=== PATIENT | female | born 1975 | race Caucasian/White ===

== ENCOUNTER 2017-08-22 21:00 | Emergency (ER) | payer OTHER, SELFPAY ==
[2017-08-22 21:38] VITALS: BP 150/85; PULSE 118; RESP 17; TEMP 38.4; O2SAT 98; BMI 32.3
--- NOTE | 2017-08-22 22:28 | HMH.EDGENADL ---
ED Disposition Clinical Impression: Viral illness Disposition: Home, Self-Care Condition on Discharge: Good Instructions: DI for Influenza -- Adult, DI for Fever (Symptom) -- Adult Additional Instructions: Tylenol or ibuprofen for fever and pain. Rest and plenty of fluids. Additional instructions for UPPER RESPIRATORY INFECTION: See your physician as soon as possible for further evaluation. Return immediately if you have an uncontrollable fever greater than 104 degrees, difficulty breathing or shortness of breath, persistent vomiting, or inability to swallow. Prescriptions: Oseltamivir Phosphate [Tamiflu 75mg Capsule] 75 mg PO BID #10 cap Forms: Work/School Release - Critical Care Critical Care Time: No Attestation: On 08/22/17, the high probability of a clinically significant, sudden or life threatening deterioration of the following system(s) required my full and direct attention, intervention and personal management. The time I documented below is in addition to time spent performing reported procedures but includes the following listed in this critical care notation. Medical Decision Making Vital Signs: 08/22/17 21:38 Temperature 101.1 F H Temperature Source Oral Pulse Rate [Left Radial] 118 H Respiratory Rate 17 Blood Pressure [Right Arm] 150/85 Blood Pressure Mean [Right Arm] 106 Blood Pressure Source [Right Arm] Automatic Cuff Blood Pressure Position [Right Arm] Sitting 02 Sat by Pulse Oximetry 98 Oxygen Delivery Method Room Air - Lab Data Lab Results 08/22/17 21:58: Influenza Type A Ag Negative, Influenza Type B Ag Negative 08/22/17 22:49: WBC 10.4, RBC 4.80, Hgb 13.9, Hct 43.0, MCV 89.5, MCH 28.9, MCHC 32.3, RDW 13.3, Plt Count 244, MPV 7.7, Neut % (Auto) 76.8, Lymph % (Auto) 14.9, [place] % (Auto) 7.1, Eos % (Auto) 0.5, Baso % (Auto) 0.7, Neut # (Auto) 8.0 H, Lymph # (Auto) 1.6, [place] # (Auto) 0.7, Eos # (Auto) 0.1, Baso # (Auto) 0.1 08/22/17 22:49: Sodium 134 L, Potassium 3.9, Chloride 101, Carbon Dioxide 25, Anion Gap 11.9, BUN 8, Creatinine 0.69, Estimated Creat Clear 151, Estimated GFR > 60, Est GFR ( Amer) > 60, Glucose 94, Calcium 8.7, Total Bilirubin 0.3, AST 53 H, ALT 127 H, Alkaline Phosphatase 78, Total Protein 7.5, Albumin 3.4, Globulin 4.1 H, Albumin/Globulin Ratio 0.8 L 08/22/17 22:49: Group A Strep Rapid Negative Result diagrams: 08/22/17 22:49 08/22/17 22:49 Orders (Tests/Meds): ED MEDICATIONS Generic Name Dose Route Start Last Admin Trade Name Freq PRN Reason Stop Dose Admin Sodium Chloride 10 ml 08/22/17 22:34 Saline Flush 10ml Syringe IV 09/21/17 22:33 NEEDED PRN Maintain IV Site Discontinued Medications Generic Name Dose Route Start Last Admin Trade Name Freq PRN Reason Stop Dose Admin Ibuprofen 600 mg 08/22/17 22:03 08/22/17 22:13 Motrin 600mg Tablet PO 08/22/17 22:04 600 mg ONCE ONE Administration Ondansetron HCl 4 mg 08/22/17 22:34 08/22/17 22:43 Zofran 4mg/2ml Vial IV 08/22/17 22:35 4 mg ONCE ONE Administration Promethazine HCl 25 kush 08/22/17 23:47 Phenergan 25mg Tablet Take Home Pack (10) PO 08/22/17 23:48 ONCE ONE Sodium Chloride 1,000 ml 08/22/17 22:34 08/22/17 22:43 Sod Chloride 0.9% 1000ml Bag IV 08/22/17 22:35 1,000 ml BOLUS ONE Administration ORDERS Category Date Time Status XR chest 2V Stat Exams 08/22/17 22:34 Taken Strep Screen Confirmation Stat Micro 08/22/17 22:49 Received - Radiology Data #1 Image(s): Chest Image Reviewed: Yes I reviewed the patient's radiology results Chest x-ray interpreted by Cory Lucero M.D. No infiltrate, pneumothorax, pleural effusion, or wide mediastinum. Atelectasis of lingula. - Jos Inquiry Pt receiving controlled substance: No Medical Decision Making Narrative: Clinically, I feel it is likely that the patient has influenza despite the negative flu swab. General Adult HPI - General Chief c
--- NOTE | 2017-08-22 22:34 | XR_ITS ---
XR chest 2V HISTORY: ITS.REASON: cough, fever ORDERING PHYSICIAN: Cory Lucero MD PATIENT AGE: 42 years COMPARISON: 10/31/2013 FINDINGS: The cardiomediastinal silhouette and pulmonary vascularity are within normal limits. The lungs are clear without infiltrates, suspicious nodules, or pleural effusions. No acute bony abnormalities. IMPRESSION: Negative chest, no acute finding
[2017-08-22 23:21] LABS: Basophils # 0.1 K/mm3 (0-0.2); Basophils % 0.7 % (0.1-2.0); Eosinophils # 0.1 K/mm3 (0.0-0.4); Eosinophils % 0.5 % (0.1-12.0); Hemoglobin 13.9 g/dL (12.2-16.2); Lymphocytes # 1.6 K/mm3 (0.7-4.5); Lymphocytes % 14.9 K/mm3 (10-50); Mean Corpuscular HGB Conc 32.3 g/dL (31.8-35.4); Mean Corpuscular Hemoglobin 28.9 pg (27.0-31.2); Mean Corpuscular Volume 89.5 fl (81-99); Mean Platelet Volume 7.7 fl (7.4-10.4); Monocytes # 0.7 K/mm3 (0.1-1.0); Monocytes % 7.1 % (1.7-9.3); Neutrophils % 76.8 % (37.0-80.0); Platelet Count 244 K/mm3 (142-424); Red Cell Distribution Width 13.3 % (11.5-17.5); White Blood Count 10.4 K/mm3 (4.8-10.8)
[2017-08-22 23:29] LABS: Alanine Aminotransferase 127 U/L (12-78); Albumin Level 3.4 gm/dL (3.4-5.0); Albumin/Globulin Ratio 0.8 (1.1-1.8); Alkaline Phosphatase 78 U/L (46-116); Anion Gap 11.9 mEq/L (5-15); Aspartate Amino Transferase 53 U/L (15-37); Bilirubin,Total 0.3 mg/dL (0.2-1.0); Blood Urea Nitrogen 8 mg/dL (7-18); Calcium 8.7 mg/dL (8.5-10.1); Carbon Dioxide 25 mmol/L (21.0-32.0); Chloride 101 mmol/L (98-107); Creatinine Clearance Estimated 151 mL/min (0-300); Creatinine,Serum 0.69 mg/dL (0.55-1.02); Estimated Glomerular Filt Rate > 60 ml/min (>60); GFR (African American) > 60 ML/MIN (>60); Globulin 4.1 gm/dl (1.3-3.2); Glucose 94 mg/dL (74-106); Potassium 3.9 mmoL/L (3.5-5.1); Sodium 134 mmol/L (136-145); Total Protein,Serum 7.5 gm/dL (6.4-8.2)
[2017-08-22 23:31] LABS: Strep Scrn Group A (Rapid) Negative (Negative)
[2017-08-23 00:26] VITALS: BP 133/65; PULSE 98; RESP 16; TEMP 37.2; O2SAT 96
== END 2017-08-23 00:26 | disposition home or self-care (01) ==
PROVIDERS: Emergency Provider Emergency Medicine; Family Provider Emergency Medicine
DX: B34.9 Viral infection, unspecified (principal); F17.210 Nicotine dependence, cigarettes, uncomplicated; Z88.0 Allergy status to penicillin
CPT/HCPCS: 71046; 80053; 85025; 87275; 87276; 87430; 96360; 96365; 96375; 99283; J2405

== ENCOUNTER 2017-12-03 13:00 | Outpatient (RCR) | payer OTHER, SELFPAY | END 2017-12-03 13:01 | disposition home or self-care (01) | LOC: PT 13:00 | PROVIDERS: Family Provider Emergency Medicine | DX: T24.231A Burn of second degree of right lower leg, initial encounter (principal) | CPT/HCPCS: 97162 ==

== ENCOUNTER → 2018-02-12 06:52 | Outpatient (CLI) | payer OTHER, SELFPAY ==
--- NOTE | 2018-02-12 06:54 | XR_ITS ---
XR chest 2V HISTORY: Tobacco user, smoker, ITS.REASON: tobacco user ORDERING PHYSICIAN: JESUS Singh PATIENT AGE: 42 years COMPARISON: 08/22/2017 FINDINGS: The cardiomediastinal silhouette and pulmonary vascularity are within normal limits. The lungs are clear without infiltrates, suspicious nodules, or pleural effusions. No acute bony abnormalities. IMPRESSION: Negative chest, no acute finding
[2018-02-12 08:02] LABS: Basophils # 0.1 K/mm3 (0-0.2); Basophils % 0.5 % (0.1-2.0); Eosinophils # 0.3 K/mm3 (0.0-0.4); Hematocrit 49.3 % (37.0-47.0); Hemoglobin 15.5 g/dL (12.2-16.2); Lymphocytes # 3.3 K/mm3 (0.7-4.5); Lymphocytes % 19.8 K/mm3 (10-50); Mean Corpuscular HGB Conc 31.5 g/dL (31.8-35.4); Mean Corpuscular Hemoglobin 26.6 pg (27.0-31.2); Mean Corpuscular Volume 84.4 fl (81-99); Mean Platelet Volume 7.3 fl (7.4-10.4); Monocytes % 5.8 % (1.7-9.3); Neutrophils # 11.9 K/mm3 (1.8-7.8); Neutrophils % 71.9 % (37.0-80.0); Platelet Count 358 K/mm3 (142-424); Red Blood Count 5.84 M/mm3 (4.20-5.40); Red Cell Distribution Width 15.3 % (11.5-17.5); White Blood Count 16.5 K/mm3 (4.8-10.8)
[2018-02-12 08:13] LABS: MANUAL DIFFERENTIAL MANUAL DIFFERENTIAL (MANUAL DIFF)
[2018-02-12 10:11] LABS: Eosinophils % 1 % (0-3); Lymphocytes % 29 % (10-50); Monocytes % 4 % (2-9); Neutrophils % 66 % (42-76); Platelet Estimate Normal; RBC Morphology Normal; Total Cells Counted 100
[2018-02-12 10:59] LABS: Alanine Aminotransferase 21 U/L (12-78); Albumin Level 3.5 gm/dL (3.4-5.0); Albumin/Globulin Ratio 0.8 (1.1-1.8); Alkaline Phosphatase 89 U/L (46-116); Anion Gap 13.5 mEq/L (5-15); Aspartate Amino Transferase 15 U/L (15-37); Bilirubin,Total 0.4 mg/dL (0.2-1.0); Blood Urea Nitrogen 11 mg/dL (7-18); Calcium 9.4 mg/dL (8.5-10.1); Carbon Dioxide 26 mmol/L (21.0-32.0); Chloride 101 mmol/L (98-107); Cholesterol 186 mg/dL (140-200); Estimated Glomerular Filt Rate 91 ml/min (>60); Free T4 (Free Thyroxine) 1.04 ng/dl (0.76-1.46); GFR (African American) 111 ML/MIN (>60); Globulin 4.5 gm/dl (1.3-3.2); Glucose 102 mg/dL (74-106); HDL Cholesterol 37 mg/dL (29-89); LDL Cholesterol 129 mg/dL (0-130); Potassium 4.5 mmoL/L (3.5-5.1); Sodium 136 mmol/L (136-145); Thyroid Stimulating Hormone 0.25 uIU/ml (0.358-3.740); Triglycerides 101 mg/dL (30-200); VLDL Cholesterol 20 mg/dL (0-40)
[2018-02-12 11:24] LABS: Hemoglobin A1C 5.5 % (0.0-7.0)
[2018-02-12 11:42] LABS: Ferritin 30 ng/mL (8-388)
[2018-02-13 08:18] LABS: Iron 74 ug/dL (27-159); Iron Saturation 20 % (15-55); UIBC 302 ug/dL (131-425)
[2018-02-13 18:12] LABS: Transferrin 298 mg/dL (200-370); Vitamin D 25 Hydroxy 30.5 ng/mL (30.0-100.0)
== END ==
PROVIDERS: Nurse Practitioner Family; PCP Emergency Medicine; Visit Provider Physician Assistant
DX: Z87.898 Personal history of other specified conditions (principal); F17.200 Nicotine dependence, unspecified, uncomplicated; R71.8 Other abnormality of red blood cells; R60.9 Edema, unspecified; I10 Essential (primary) hypertension; F41.9 Anxiety disorder, unspecified; T30.0 Burn of unspecified body region, unspecified degree
CPT/HCPCS: 36415; 71046; 80053; 80061; 82652; 82728; 83036; 83540; 83550; 84439; 84443; 84466; 85007; 85025

== ENCOUNTER → 2018-02-22 13:44 | Outpatient (CLI) | payer OTHER, SELFPAY ==
--- NOTE | 2018-02-22 13:45 | CA_ITS ---
PROCEDURE: 2-D M-mode and color Doppler study INDICATIONS FOR THE TEST: Chest pain COPD Heart Murmur Tobacco SmokingX Palpitations Fatigue Syncope EdemaX HypertensionXDiabetes Mellitus Rheumatic Fever SOB GROSSMAN Obesity Hyperlipidemia Family History HD Additional History ANXIETY,DEPRESSION PATIENT INFORMATION HEIGHT: 66 WEIGHT:198 GENDER: Female B/P:150/100 2-D/M-MODE INTERPRETATION: 2-D MEASUREMENTS OBSERVED VALUES IN CMS Right Ventricular Dimension (RVDd) 1.2 Interventricular Septum (Thickness)(IVsd) 1.0 Left Ventricular Internal Dimensions(LVIDd) 5.0 Left Ventricular Posterior Wall (Thickness)(LVPWd) 1.0 Aortic Root 3.0 Aortic Cusp Separation 1.9 Left Atrial Dimensions (LAD) 3.1 2D 1. Left atrium is mildly enlarged, left ventricle is normal size, left ventricle wall thickness is upper limit of normal, there is preserved left ventricular systolic function, visually estimated ejection fraction 55% with no obvious regional wall motion abnormality. 2. The right atrium and right ventricle are normal size and contractility. 3. The aortic valve is minimally thickened and fibrosed. 4. The mitral and tricuspid valve are structurally normal. 5. The pulmonic valve is poorly visualized. 6. No significant pericardial effusion noted. DOPPLER INTERROGATION: Doppler interrogation of the aortic, mitral and tricuspid valvular presence of mild mitral and tricuspid regurgitation, tricuspid regurgitant jet velocity is insufficient for calculation of the right ventricular systolic pressure, grade 1 diastolic dysfunction seen without tissue Doppler evidence of raised left atrial pressure. CONCLUSION: 1. Mildly enlarged left atrium, normal left ventricular size, visually estimated ejection fraction 55% with no obvious regional wall motion abnormality, grade 1 diastolic dysfunction seen without tissue Doppler evidence of raised left atrial pressure. 2. Mild mitral and tricuspid regurgitation 3. No significant pericardial effusion noted.
== END ==
PROVIDERS: Family Provider Emergency Medicine; PCP Emergency Medicine; Visit Provider Physician Assistant
DX: F41.9 Anxiety disorder, unspecified (principal); R60.9 Edema, unspecified; I10 Essential (primary) hypertension; T30.0 Burn of unspecified body region, unspecified degree
CPT/HCPCS: 93306

== ENCOUNTER → 2018-03-10 11:29 | Outpatient (CLI) | payer OTHER, SELFPAY ==
[2018-03-10 11:45] LABS: Basophils # 0.1 K/mm3 (0-0.2); Basophils % 0.5 % (0.1-2.0); Eosinophils # 0.3 K/mm3 (0.0-0.4); Eosinophils % 2.1 % (0.1-12.0); Hematocrit 45.5 % (37.0-47.0); Hemoglobin 14.5 g/dL (12.2-16.2); Lymphocytes # 2.7 K/mm3 (0.7-4.5); Lymphocytes % 20.6 K/mm3 (10-50); Mean Corpuscular Hemoglobin 27.5 pg (27.0-31.2); Mean Corpuscular Volume 86.1 fl (81-99); Mean Platelet Volume 7.7 fl (7.4-10.4); Monocytes # 0.7 K/mm3 (0.1-1.0); Monocytes % 5.1 % (1.7-9.3); Neutrophils # 9.4 K/mm3 (1.8-7.8); Neutrophils % 71.6 % (37.0-80.0); Platelet Count 311 K/mm3 (142-424); Red Blood Count 5.28 M/mm3 (4.20-5.40); Red Cell Distribution Width 15.7 % (11.5-17.5); White Blood Count 13.1 K/mm3 (4.8-10.8)
[2018-03-10 12:07] LABS: Anion Gap 13.3 mEq/L (5-15); Blood Urea Nitrogen 7 mg/dL (7-18); Carbon Dioxide 27 mmol/L (21.0-32.0); Chloride 104 mmol/L (98-107); Creatinine,Serum 0.75 mg/dL (0.55-1.02); Estimated Glomerular Filt Rate 84 ml/min (>60); GFR (African American) 102 ML/MIN (>60); Potassium 4.3 mmoL/L (3.5-5.1); Sodium 140 mmol/L (136-145)
[2018-03-10 12:27] LABS: Glucose 140 mg/dL (74-106)
== END ==
PROVIDERS: Family Provider Emergency Medicine; PCP Emergency Medicine; Visit Provider Physician Assistant
DX: I10 Essential (primary) hypertension (principal); D72.829 Elevated white blood cell count, unspecified
CPT/HCPCS: 36415; 80048; 85025

== ENCOUNTER → 2019-03-10 14:01 | Outpatient (CLI) | payer MEDICAID, SELFPAY ==
[2019-03-10 14:37] LABS: Basophils # 0.1 K/mm3 (0-0.2); Basophils % 0.7 % (0.1-2.0); Eosinophils # 0.3 K/mm3 (0.0-0.4); Eosinophils % 2.2 % (0.1-12.0); Hematocrit 46.4 % (37.0-47.0); Lymphocytes # 3.1 K/mm3 (0.7-4.5); Lymphocytes % 22.2 % (10-50); Mean Corpuscular HGB Conc 32.3 g/dL (31.8-35.4); Mean Corpuscular Hemoglobin 28.4 pg (27.0-31.2); Mean Corpuscular Volume 87.9 fl (81-99); Mean Platelet Volume 8.7 fl (7.4-10.4); Monocytes # 0.9 K/mm3 (0.1-1.0); Monocytes % 6.8 % (1.7-9.3); Neutrophils # 9.4 K/mm3 (1.8-7.8); Neutrophils % 68.1 % (37.0-80.0); Platelet Count 355 K/mm3 (142-424); Red Blood Count 5.28 M/mm3 (4.20-5.40); Red Cell Distribution Width 12.9 % (11.5-17.5); White Blood Count 13.7 K/mm3 (4.8-10.8)
[2019-03-10 15:20] LABS: Alanine Aminotransferase 48 U/L (12-78); Albumin Level 3.3 gm/dL (3.4-5.0); Albumin/Globulin Ratio 0.8 (1.1-1.8); Alkaline Phosphatase 71 U/L (46-116); Anion Gap 13.5 mEq/L (5-15); Aspartate Amino Transferase 22 U/L (15-37); Bilirubin,Total 0.3 mg/dL (0.2-1.0); Blood Urea Nitrogen 11 mg/dL (7-18); Calcium 9.4 mg/dL (8.5-10.1); Carbon Dioxide 25 mmol/L (21.0-32.0); Chloride 101 mmol/L (98-107); Chol/HDL Ratio 3.4 (1-3.5); Cholesterol 163 mg/dL (140-200); Estimated Glomerular Filt Rate 78 ml/min (>60); GFR (African American) 94 ML/MIN (>60); Glucose 95 mg/dL (74-106); HDL Cholesterol 48 mg/dL (29-89); LDL Cholesterol 94 mg/dL (0-130); Potassium 4.5 mmoL/L (3.5-5.1); Sodium 135 mmol/L (136-145); T4 (Thyroxine) 9.2 ug/dl (4.7-13.3); Thyroid Stimulating Hormone 0.13 uIU/ml (0.358-3.740); Total Protein,Serum 7.3 gm/dL (6.4-8.2); Triglycerides 104 mg/dL (30-200); VLDL Cholesterol 21 mg/dL (0-40)
[2019-03-11 15:04] LABS: Vitamin D 25 Hydroxy 26.1 ng/mL (30.0-100.0)
== END ==
PROVIDERS: Visit Provider Nurse Practitioner Family
DX: G89.29 Other chronic pain (principal); I10 Essential (primary) hypertension
CPT/HCPCS: 80053; 80061; 82652; 84436; 84443; 85025

== ENCOUNTER → 2019-03-31 14:32 | Outpatient (CLI) | payer MEDICAID, SELFPAY ==
[2019-03-31 15:00] LABS: Basophils # 0.1 K/mm3 (0-0.2); Basophils % 0.5 % (0.1-2.0); Eosinophils # 0.3 K/mm3 (0.0-0.4); Eosinophils % 2.4 % (0.1-12.0); Hematocrit 45.1 % (37.0-47.0); Hemoglobin 15.2 g/dL (12.2-16.2); Lymphocytes # 2.7 K/mm3 (0.7-4.5); Lymphocytes % 19.4 % (10-50); Mean Corpuscular HGB Conc 33.8 g/dL (31.8-35.4); Mean Corpuscular Hemoglobin 30.4 pg (27.0-31.2); Mean Platelet Volume 7.4 fl (7.4-10.4); Monocytes # 0.8 K/mm3 (0.1-1.0); Monocytes % 5.8 % (1.7-9.3); Neutrophils # 9.9 K/mm3 (1.8-7.8); Neutrophils % 71.9 % (37.0-80.0); Platelet Count 328 K/mm3 (142-424); Red Blood Count 5.01 M/mm3 (4.20-5.40); Red Cell Distribution Width 13.5 % (11.5-17.5); White Blood Count 13.8 K/mm3 (4.8-10.8)
[2019-03-31 15:39] LABS: Erythrocyte Sedimentation Rate 14 mm/hr (0-20)
[2019-03-31 15:42] LABS: Blood Urea Nitrogen 8 mg/dL (7-18); C-Reactive Protein 0.4 mg/dL (0.0-0.9); Calcium 9.1 mg/dL (8.5-10.1); Carbon Dioxide 25 mmol/L (21.0-32.0); Chloride 105 mmol/L (98-107); Creatinine,Serum 0.82 mg/dL (0.55-1.02); Estimated Glomerular Filt Rate 76 ml/min (>60); Free T4 (Free Thyroxine) 1.23 ng/dl (0.76-1.46); GFR (African American) 92 ML/MIN (>60); Glucose 97 mg/dL (74-106); Sodium 142 mmol/L (136-145); Thyroid Stimulating Hormone 0.14 uIU/ml (0.358-3.740)
[2019-04-03 16:30] LABS: RA Latex Turbid. 22.9 IU/mL (0.0-13.9)
[2019-04-04 10:15] LABS: PTT-LA 30.9 sec (0.0-51.9); dRVVT 30.4 sec (0.0-47.0)
[2019-04-04 10:26] LABS: Lupus Reflex Interpretation Comment: (.)
[2019-04-04 15:26] LABS: Anti-Centromere B Antibodies <0.2 AI (0.0-0.9); Anti-Jo-1 <0.2 AI (0.0-0.9); Anti-Smith Antibody <0.2 AI (0.0-0.9); Antichromatin Antibodies 0.2 AI (0.0-0.9); Antiscleroderma-70 Antibodies <0.2 AI (0.0-0.9); RNP Antibodies 0.2 AI (0.0-0.9); Sjogren's Anti-SS-A <0.2 AI (0.0-0.9); Sjogren's Anti-SS-B <0.2 AI (0.0-0.9)
[2019-04-05 06:55] LABS: Anti-Cyclic Citrullinated Pept 4 units (0-19); Anti-DNA (DS) Ab Qn <1 IU/mL (0-9)
== END ==
PROVIDERS: Visit Provider Nurse Practitioner Family
DX: R53.83 Other fatigue (principal); E87.1 Hypo-osmolality and hyponatremia; M25.50 Pain in unspecified joint; D72.829 Elevated white blood cell count, unspecified
CPT/HCPCS: 36415; 80048; 84439; 84443; 85025; 85613; 85651; 86140; 86200; 86225; 86235; 86431

== ENCOUNTER 2020-04-28 05:35 | Emergency (ER) | payer BC, SELFPAY ==
--- NOTE | 2020-04-28 05:43 | XR_ITS ---
PROCEDURE: XR ANKLE RT MIN 3V Referring Doctor: Cherie Minor Patient Age:45Y CLINICAL INDICATION: pain twisted ankle after stepping off step, swelling laterally. COMPARISON: No exams were available for comparison FINDINGS: Soft tissue swelling evident overlying the lateral malleolus noted and appears to extends distally to the lateral hindfoot. There is a old corticated 7 mm round osseous density off the tip of the lateral malleolus which likely reflects old injury versus accessory ossicle. Just inferior to this and lateral to the talus is a small 1 x 2 mm osseous bev. Of this fragment indeterminate. It could be old but since more irregular margins and a could not exclude a recent or acute tiny avulsion flake fracture. Which is basically in the spectrum severe sprain. The medial malleolus intact noting only very tiny less than 2 mm tiny accessory ossicle. But the ankle mortise is intact. + The dome of talus intact. IMPRESSION: Soft tissue swelling overlying the lateral malleolus. No prominent fractures at the ankle However I would note a tiny 1 x 2 mm osseous bev, inferior to larger accessory ossicle beneath tip lateral malleolus. This very tiny fragments of indeterminate character.. May be old but with its slight irregular margins and lateral soft tissue swelling a could not exclude a recent tiny avulsion flake fracture. Dictated by: Arturo Sheehan MD 04/28/2020 09:46 Arturo Sheehan MD in [place] 04/28/2020 09:46
[2020-04-28 05:46] VITALS: BP 168/110; PULSE 92; RESP 16; TEMP 36.9; O2SAT 98; BMI 30.7
--- NOTE | 2020-04-28 06:06 | HMH.EDGENADL ---
ED Disposition Clinical Impression: Ankle sprain and strain Disposition: Home, Self-Care Condition on Discharge: Good Instructions: Sprain Referrals: Jovan Maciel MD [Primary Care Provider] - - Critical Care Critical Care Time: No Attestation: On 04/28/20, the high probability of a clinically significant, sudden or life threatening deterioration of the following system(s) required my full and direct attention, intervention and personal management. The time I documented below is in addition to time spent performing reported procedures but includes the following listed in this critical care notation. Medical Decision Making - Jos Inquiry Pt receiving controlled substance: No Vital Signs: 04/28/20 05:46 Temperature 98.5 F Temperature Source Oral Pulse Rate [Right] 92 H Respiratory Rate 16 Blood Pressure [Right Arm] 168/110 H Blood Pressure Mean [Right Arm] 129 Blood Pressure Source [Right Arm] Automatic Cuff Blood Pressure Position [Right Arm] Sitting 02 Sat by Pulse Oximetry 98 Oxygen Delivery Method Room Air Orders (Tests/Meds): ORDERS Category Date Time Status Ankle XR -Right minimum 3 Views [XR ankle RT min 3V] Exams 04/28/20 05:43 Taken Stat Medical Decision Narrative: The patient is a 45 year old female who presents with right ankle pain after fall. She is awake, alert, stable. She has tenderness to her right ankle. No midfoot tenderness. X-rays were obtained and showed no acute fracture by my own read. Will dc patient home with return precautions. General Adult HPI - General Chief complaint: Extremity Injury, Lower Stated complaint: AO 04/28/20 05:00 injury right ankle Time Seen by Provider: 04/28/20 05:46 Mode of Arrival: Wheelchair Limitations: No Limitations Description of Symptoms (Recalled from ER Triage Doc. by RN): patient states she was walking down stairs and her right ankle gave out. she heard a popping sound and now is having pain. - History of Present Illness HPI narrative: The patient is a 45 year old female who presents with right ankle pain. The patient was walking down the stairs this morning and twisted her ankle. She heard a pop and had immediate pain. No other injuries or complaints. - Related Data Home Medications Medication Instructions Recorded Confirmed No Known Home Medications 04/28/20 04/28/20 Allergies Allergy/AdvReac Type Severity Reaction Status Date / Time Penicillins [PENICILLINS] Allergy Severe S-SWELLS-OR Verified 04/28/20 05:56 AL/THROAT tetracycline Allergy Intermediate Hives Verified 04/28/20 05:56 sulfamethazine Allergy Mild Verified 04/28/20 05:56 [facility] History - Hepatitis A Screen Drug use history?: No High risk sexual behaviors?: No History of sexually transmitted infection?: No Currently employed?: No Childcare worker?: No Do you have indoor plumbing?: Yes Do you have electricity?: Yes Attestation statement:: This patient has been screened for Hepatitis A risk factors. I have reviewed the patient's past medical history: Yes Medical History: Reports:: Anxiety, Depression, Hypertension Denies:: Cancer, Diabetes Mellitus Type 1, Diabetes Mellitus Type 2, MRSA Other Medical History: Reports: Other Comment: Douglas Laterality Cases: Bilateral: Tonsillectomy Other Surgeries: Yes: Tubal Ligation, Other Amputation: No Fractures: No - Social History Smoking Status: Heavy tobacco smoker Tobacco Type: cigarettes # Packs/Day (cigarettes): 2 Alcohol Intake: current Alcohol Intake Frequency:: a few times a month Substance Use Type: heroin Occupational Status: employed Housing: house Household Members: significant other - Psychiatric History Pschychiatric History:: Reports:: Anxiety, Depression Family Hx:: Cancer, Stroke, Coronary Artery Disease ROS Obtained: Yes All systems reviewed & no additional complaints Physical Exam - General General appearance: alert, in no apparent distress - Head He
[2020-04-28 06:49] VITALS: BP 151/109; PULSE 82; RESP 16; TEMP 36.9; O2SAT 99
--- NOTE | 2020-04-28 18:27 | PC.NURSE ---
pt called advising she would like to have crutches after all, met pt outside with them.
== END 2020-04-28 06:58 | disposition home or self-care (01) ==
PROVIDERS: Emergency Provider Emergency Medicine; PCP Emergency Medicine
DX: S93.401A Sprain of unspecified ligament of right ankle, initial encounter (principal); W10.9XXA Fall (on) (from) unspecified stairs and steps, initial encounter; Y92.019 Unspecified place in single-family (private) house as the place of occurrence of the external cause; F41.8 Other specified anxiety disorders; I10 Essential (primary) hypertension; F17.210 Nicotine dependence, cigarettes, uncomplicated; Z88.0 Allergy status to penicillin; Z88.2 Allergy status to sulfonamides
CPT/HCPCS: 29515; 73610; 99283

== ENCOUNTER 2020-04-30 11:48 | Outpatient (RCR) | payer BC, SELFPAY | END 2020-04-30 12:15 | disposition home or self-care (01) | LOC: PT 11:48 | PROVIDERS: Visit Provider Physician Assistant | DX: S93.401A Sprain of unspecified ligament of right ankle, initial encounter (principal) ==

== ENCOUNTER 2020-09-07 17:31 | Emergency (ER) | payer BC, SELFPAY ==
[2020-09-07 17:32] VITALS: BP 125/88; PULSE 129; RESP 20; TEMP 36.6; O2SAT 98; BMI 29.0
--- NOTE | 2020-09-07 17:37 | HMH.EDGENADL ---
ED Disposition Clinical Impression: Allergic reaction Qualifiers: Encounter type: initial encounter Qualified Code(s): T78.40XA - Allergy, unspecified, initial encounter Disposition: Home, Self-Care Condition on Discharge: Good Additional Instructions: Always take prescribed steroids with food. Take 25 mg of Benadryl every 6 hours for the next 48 hours. Do not operate heavy machinery or drink alcohol while taking this medicine. Return if any new or recurrent symptoms. Prescriptions: predniSONE [Prednisone 20mg Tab] 40 mg PO DAILY 4 Days #8 tab Transmission Status: Pending to [id number] Referrals: Jovan Maciel MD [Primary Care Provider] - - Critical Care Critical Care Time: No Attestation: On , the high probability of a clinically significant, sudden or life threatening deterioration of the following system(s) required my full and direct attention, intervention and personal management. The time I documented below is in addition to time spent performing reported procedures but includes the following listed in this critical care notation. Medical Decision Making - Medical Records Medical records reviewed: Yes: I reviewed the patient's medical records. - Jos Inquiry Pt receiving controlled substance: No Vital Signs: 09/07/20 17:32 Temperature 98 F Temperature Source Oral Pulse Rate [Radial] 129 H Respiratory Rate 20 Blood Pressure [Right Arm] 125/88 Blood Pressure Mean [Right Arm] 100 Blood Pressure Position [Right Arm] Sitting 02 Sat by Pulse Oximetry 98 Oxygen Delivery Method Room Air - Lab Data Lab Results 09/07/20 17:50: WBC 14.1 H, RBC 5.63 H, Hgb 17.1 H, Hct 51.3 H, MCV 91.1, MCH 30.3, MCHC 33.3, RDW 13.9, Plt Count 428 H, MPV 7.7, Neut % (Auto) 66.6, Lymph % (Auto) 26.4, [place] % (Auto) 5.6, Eos % (Auto) 1.0, Baso % (Auto) 0.4, Neut # (Auto) 9.4 H, Lymph # (Auto) 3.7, [place] # (Auto) 0.8, Eos # (Auto) 0.1, Baso # (Auto) 0.1 09/07/20 17:50: Sodium 136, Potassium 3.5, Chloride 101, Carbon Dioxide 26, Anion Gap 12.5, BUN 10, Creatinine 0.70, Estimated GFR 90, Est GFR ( Amer) 109, Glucose 175 H, Calcium 9.4 Result diagrams: 09/07/20 17:50 09/07/20 17:50 Orders (Tests/Meds): ED MEDICATIONS Generic Name Dose Route Start Last Admin Trade Name Freq PRN Reason Stop Dose Admin Sodium Chloride 1,000 mls @ 999 mls/hr 09/07/20 18:15 09/07/20 18:15 Sod Chlor 0.9% 1000ml Bag IV 09/07/20 19:15 999 mls/hr .Q1H1M DOMINIQUE Administration Sodium Chloride 10 ml 09/07/20 18:24 Sodium Chloride 0.9% 10ml Vial IV 10/07/20 18:23 NEEDED PRN to Dilute Lorazepam inj Discontinued Medications Generic Name Dose Route Start Last Admin Trade Name Freq PRN Reason Stop Dose Admin Famotidine 20 mg 09/07/20 17:49 09/07/20 18:15 Famotidine 20mg Tablet PO 09/07/20 17:50 20 mg ONCE ONE Administration Lorazepam 1 mg 09/07/20 18:24 09/07/20 18:33 Lorazepam 2mg/Ml Vial IV 09/07/20 18:25 1 mg ONCE ONE Administration Methylprednisolone Sodium Succinate 125 mg 09/07/20 18:14 09/07/20 18:15 Methylprednisolone Sod Succ 125mg Vial IV 09/07/20 18:15 125 mg ONCE ONE Administration Ondansetron HCl 4 mg 09/07/20 18:14 09/07/20 18:15 Ondansetron 4mg/2ml Vial IV 09/07/20 18:15 4 mg ONCE ONE Administration Ondansetron HCl 4 mg 09/07/20 18:24 09/07/20 18:33 Ondansetron 4mg/2ml Vial IV 09/07/20 18:25 4 mg ONCE ONE Administration Prednisone 60 mg 09/07/20 17:49 09/07/20 18:15 Prednisone 20mg Tab PO 09/07/20 17:50 Not Given ONCE ONE Medical Decision Narrative: Patient presents with generalized allergic reaction. Patient hemodynamically stable on arrival already taking Benadryl at home. H2 blockers and steroids given in the ER. Patient without any hives noted but does have excoriations due to itchiness. Basic lab work will be checked patient be monitored to ensure resolution of symptoms. Leukocytosis con
[2020-09-07 17:59] LABS: Basophils # 0.1 K/mm3 (0-0.2); Basophils % 0.4 % (0.1-2.0); Eosinophils # 0.1 K/mm3 (0.0-0.4); Hematocrit 51.3 % (37.0-47.0); Hemoglobin 17.1 g/dL (12.2-16.2); Lymphocytes # 3.7 K/mm3 (0.7-4.5); Lymphocytes % 26.4 % (10-50); Mean Corpuscular HGB Conc 33.3 g/dL (31.8-35.4); Mean Corpuscular Hemoglobin 30.3 pg (27.0-31.2); Mean Corpuscular Volume 91.1 fl (81-99); Mean Platelet Volume 7.7 fl (7.4-10.4); Monocytes # 0.8 K/mm3 (0.1-1.0); Monocytes % 5.6 % (1.7-9.3); Neutrophils # 9.4 K/mm3 (1.8-7.8); Neutrophils % 66.6 % (37.0-80.0); Platelet Count 428 K/mm3 (142-424); Red Blood Count 5.63 M/mm3 (4.20-5.40); Red Cell Distribution Width 13.9 % (11.5-17.5); White Blood Count 14.1 K/mm3 (4.8-10.8)
[2020-09-07 18:02] VITALS: BP 123/83; PULSE 126; O2SAT 94
[2020-09-07 18:06] LABS: Chloride 101 mmol/L (98-107); Potassium 3.5 mmoL/L (3.5-5.1); Sodium 136 mmol/L (136-145)
[2020-09-07 18:09] LABS: Anion Gap 12.5 mEq/L (5-15); Blood Urea Nitrogen 10 mg/dl (7-17); Calcium 9.4 mg/dl (8.4-10.2); Carbon Dioxide 26 mmol/L (22.0-30.0); Estimated Glomerular Filt Rate 90 ml/min (>60); GFR (African American) 109 ML/MIN (>60); Glucose 175 mg/dl (74-100)
[2020-09-07 18:30] VITALS: BP 128/65; PULSE 100; RESP 20; O2SAT 95
--- NOTE | 2020-09-07 18:56 | PC.NURSE ---
report given to Ac Warner RN
[2020-09-07 19:30] VITALS: BP 113/66; PULSE 102; RESP 20; O2SAT 96
[2020-09-07 20:02] VITALS: BP 121/87; PULSE 116; RESP 20; TEMP 36.7; O2SAT 96
== END 2020-09-07 20:03 | disposition home or self-care (01) ==
PROVIDERS: Emergency Provider Emergency Medicine; PCP Emergency Medicine
DX: L29.8 Other pruritus (principal); T36.8X5A Adverse effect of other systemic antibiotics, initial encounter; Y92.019 Unspecified place in single-family (private) house as the place of occurrence of the external cause; I10 Essential (primary) hypertension; F41.8 Other specified anxiety disorders; F17.210 Nicotine dependence, cigarettes, uncomplicated; Z88.0 Allergy status to penicillin; Z88.2 Allergy status to sulfonamides
CPT/HCPCS: 80048; 85025; 96365; 96375; 99283; J2405

== ENCOUNTER 2020-10-29 15:41 | Emergency (ER) | payer BC, SELFPAY ==
[2020-10-29 15:45] VITALS: BP 190/111; PULSE 73; RESP 18; TEMP 37; O2SAT 98; BMI 25.8
--- NOTE | 2020-10-29 16:04 | HMH.EDUTC ---
[facility] Impression: Encounter for laboratory testing for COVID-19 virus Disposition: Home, Self-Care Condition on Discharge: Good Instructions: DI for COVID-19 (Suspected or Confirmed ), Coronavirus Disease 2019, Preventing the Spread of Coronavirus Discharge Instructions, Hypertension (Alternative Therapy) Additional Instructions: Make sure to follow up with your Family Doctor for re-evaluation of your blood pressure You were tested for today for COVID19 your test result should be back in the next 24-48 hours, you may call to the [facility] to see if your test results are back in the next 48 hours [phone] [facility] hours are 9am-9pm You was given a handout with instructions for Self Quarantine and Self isolation for while you wait on test results and what to do if they are positive If you are positive the Health Dept will be contacting you also Referrals: Jovan Maciel MD [Primary Care Provider] - As needed Forms: Work/School Release Time of Disposition: 16:12 Medical Decision Making - Jos Inquiry Pt receiving controlled substance: No Jos was queried for this patient: No Vital Signs: 10/29/20 15:45 Temperature 98.6 F Temperature Source Oral Pulse Rate [Right Brachial] 73 Respiratory Rate 18 Blood Pressure [Right Arm] 190/111 H Blood Pressure Mean [Right Arm] 137 Blood Pressure Source [Right Arm] Automatic Cuff Blood Pressure Position [Right Arm] Sitting 02 Sat by Pulse Oximetry 98 Oxygen Delivery Method Room Air Orders (Tests/Meds): ORDERS Category Date Time Status Covid-19 Nasal PCR ([facility]) Routine Lab 10/29/20 14:55 Received Medical Decision Narrative: Patients blood pressure elevated Patient states that she is aggrivated and upset where she had to leave work and knew her blood pressure would be elevated Recommended transfer to the ED for further work up and evaluation and patient declined States she is aware of risks associated with High blood pressure including but not limited to stroke, PA and even and still declined transfer states that she will follow up with her P[place] [facility] [place] - General Stated complaint: covid test Time Seen by Provider: 10/29/20 16:04 Mode of Arrival: Ambulatory Source of Information: Patient Limitations: No Limitations Description of Symptoms (Recalled from Triage Doc. by RN): PATIENT NEEDING COVID TEST FOR WORK. DENIES SYMPTOMS OR EXPOSURE HEENT Symptoms (Recalled from RN notes): No Resp Symptoms (Recalled from RN notes): No Skin Symptoms (Recalled from RN notes): No MS Symptoms (Recalled from RN notes): No Functional Status (Recalled from RN notes): WNL - History of Present Illness Provider Complaint: Patient states that she was at work and they do a spit test for COVID and hers came back inconclusive States that they was making her get a nasal swab State that she knows her blood pressure will be elevated because she is aggrivated and upset because she had to leave work to come and get it done - Related Data Previous Rx's Medication Instructions Recorded tramadol 50 mg tablet 50 mg PO Q8H #20 tab 04/30/20 diclofenac sodium 1 % topical gel 4 g TOPICAL QID PRN #30 g 05/08/20 meloxicam 7.5 mg tablet 7.5 mg PO DAILY #30 tab 05/08/20 predniSONE [Prednisone 20mg 40 mg PO DAILY 4 Days #8 tab 09/07/20 Tab] Allergies Allergy/AdvReac Type Severity Reaction Status Date / Time Penicillins [PENICILLINS] Allergy Severe S-SWELLS-OR Verified 06/26/20 14:59 AL/THROAT tetracycline Allergy Intermediate Hives Verified 06/26/20 14:59 sulfamethazine Allergy Mild Verified 06/26/20 14:59 sulfamethoxazole Allergy rash, Verified 10/01/20 10:35 [From Bactrim] trouble breathing, vomiting. trimethoprim [From Bactrim] Allergy rash, Verified 10/01/20 10:35 trouble breathing, vomiting. - Worker's Comp Is this a Worker's Comp case?: No [facility] History - Hepatitis A Screen Drug use history?: No High risk se
[2020-10-29 16:13] VITALS: BP 190/111; PULSE 73; RESP 18; TEMP 37; O2SAT 98
== END 2020-10-29 16:16 | disposition home or self-care (01) ==
PROVIDERS: Emergency Provider Nurse Practitioner; PCP Emergency Medicine
DX: Z20.822 Contact with and (suspected) exposure to COVID-19 (principal); F41.8 Other specified anxiety disorders; I10 Essential (primary) hypertension; F17.210 Nicotine dependence, cigarettes, uncomplicated
CPT/HCPCS: 99202; G0463; U0003

== ENCOUNTER 2020-11-18 13:38 | Emergency (ER) | payer BC, SELFPAY ==
[2020-11-18 13:49] VITALS: BP 180/101; PULSE 127; RESP 18; TEMP 36.8; O2SAT 98; BMI 60.5
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
[2020-11-18 14:17] VITALS: BP 177/112; PULSE 125; O2SAT 96
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
[2020-11-18 14:28] VITALS: BP 160/107; PULSE 121; O2SAT 96
[2020-11-18 14:30] VITALS: BP 160/107; PULSE 127
[2020-11-18 14:32] LABS: Microscopic, Urine URINE MICROSCOPIC (MICROSCOPIC)
[2020-11-18 14:36] LABS: Appearance,Urine CLEAR (Clear); Bilirubin,Urine Negative (Negative); Blood, Urine Negative (Negative); Color,Urine YELLOW (Yellow); Glucose,Urine (UA) Negative (Negative); Ketones,Urine Negative (Negative); Leukocyte Esterase,Urine Negative (Negative); Nitrate,Urine Negative (Negative); Protein,Urine 2+ (Negative); Specific Gravity, Urine >= 1.030 (1.005-1.030); Urobilinogen,Urine 0.2 EU/dl (0.2)
[2020-11-18 14:39] LABS: Urine Pregnancy, HCG Qual. Negative (Negative)
[2020-11-18 14:45] LABS: WBC,Urine Occasional #/hpf (0-3)
[2020-11-18 14:46] LABS: Amorphous Sediment,Urine 2+ /lpf; Squamous Epithelial Cell,Urine 20-50 #/hpf (0-5)
[2020-11-18 14:49] LABS: Benzodiazepines Screen,Urine Negative ng/ml (<200)
[2020-11-18 14:50] LABS: Amphetamine/Metha Screen,Urine Negative ng/ml (<1000); Barbiturates Screen,Urine Negative ng/ml (<200)
[2020-11-18 14:51] LABS: Cannabinoid Screen,Urine Positive ng/ml (<50)
[2020-11-18 14:52] LABS: Cocaine Screen,Urine Negative ng/ml (<300); Methadone Screen,Urine Negative ng/ml (<300)
[2020-11-18 14:53] LABS: Chloride 104 mmol/L (98-107); Potassium 3.7 mmoL/L (3.5-5.1); Sodium 136 mmol/L (136-145)
[2020-11-18 14:53] LABS: Opiate Screen,Urine Negative ng/ml (<300)
[2020-11-18 14:54] LABS: Phencyclidine Screen,Urine Negative ng/ml (<25)
[2020-11-18 14:56] LABS: Alanine Aminotransferase 53 U/L (12-78); Albumin Level 4.5 g/dl (3.5-5.0); Albumin/Globulin Ratio 1.2 (1.1-1.8); Alkaline Phosphatase 91 U/L (38-126); Anion Gap 8.7 mEq/L (5-15); Aspartate Amino Transferase 47 U/L (14-36); Bilirubin,Total 0.4 mg/dl (0.2-1.3); Blood Urea Nitrogen 10 mg/dl (7-17); Calcium 9.5 mg/dl (8.4-10.2); Carbon Dioxide 27 mmol/L (22.0-30.0); Creatinine Clearance Estimated 94 mL/min (50-200); Estimated Glomerular Filt Rate 90 ml/min (>60); GFR (African American) 109 ML/MIN (>60); Globulin 3.7 g/dL (1.3-3.2); Glucose 142 mg/dl (74-100); Total Protein,Serum 8.2 g/dl (6.3-8.2)
[2020-11-18 14:57] LABS: Basophils # 0.1 K/mm3 (0-0.2); Basophils % 0.9 % (0.1-2.0); Eosinophils # 0.5 K/mm3 (0.0-0.4); Eosinophils % 3.5 % (0.1-12.0); Ethyl Alcohol < 10 mg/dl (0-10); Hematocrit 47.7 % (37.0-47.0); Lymphocytes # 2.7 K/mm3 (0.7-4.5); Lymphocytes % 19.3 % (10-50); Mean Corpuscular HGB Conc 31.4 g/dL (31.8-35.4); Mean Corpuscular Hemoglobin 28.3 pg (27.0-31.2); Mean Corpuscular Volume 90.2 fl (81-99); Mean Platelet Volume 7.4 fl (7.4-10.4); Monocytes # 0.7 K/mm3 (0.1-1.0); Monocytes % 5.2 % (1.7-9.3); Neutrophils # 10.1 K/mm3 (1.8-7.8); Neutrophils % 71.1 % (37.0-80.0); Platelet Count 421 K/mm3 (142-424); Red Blood Count 5.28 M/mm3 (4.20-5.40); Red Cell Distribution Width 13.3 % (11.5-17.5); White Blood Count 14.2 K/mm3 (4.8-10.8)
--- NOTE | 2020-11-18 15:23 | PC.NURSE ---
C-COLLAR REMOVED PER DR LEUNG
[2020-11-18 15:33] VITALS: BP 150/86; PULSE 108; O2SAT 98
[2020-11-18 15:55] VITALS: BP 150/86; PULSE 108; RESP 18; TEMP 36.8; O2SAT 98
== END 2020-11-18 15:57 ==
PROVIDERS: Emergency Provider Emergency Medicine
DX: T40.1X1A Poisoning by heroin, accidental (unintentional), initial encounter (principal); V47.0XXA Car driver injured in collision with fixed or stationary object in nontraffic accident, initial encounter; Y92.414 Local residential or business street as the place of occurrence of the external cause; F12.10 Cannabis abuse, uncomplicated; F41.8 Other specified anxiety disorders; I10 Essential (primary) hypertension; F17.210 Nicotine dependence, cigarettes, uncomplicated; Z88.0 Allergy status to penicillin; Z88.2 Allergy status to sulfonamides
CPT/HCPCS: 70450; 71045; 72125; 72170; 74177; 80053; 80305; 81001; 81025; 85025; 99283; Q9967

== ENCOUNTER → 2021-05-31 19:03 | Outpatient (CLI) | payer OTHER, SELFPAY ==
[2021-05-31 19:16] LABS: Basophils # 0.1 K/mm3 (0-0.2); Basophils % 0.8 % (0.1-2.0); Eosinophils # 0.4 K/mm3 (0.0-0.4); Eosinophils % 3.3 % (0.1-12.0); Hematocrit 49.5 % (37.0-47.0); Hemoglobin 16.6 g/dL (12.2-16.2); Lymphocytes # 2.7 K/mm3 (0.7-4.5); Lymphocytes % 20.6 % (10-50); Mean Corpuscular HGB Conc 33.6 g/dL (31.8-35.4); Mean Corpuscular Hemoglobin 31.1 pg (27.0-31.2); Mean Corpuscular Volume 92.7 fl (81-99); Monocytes # 0.7 K/mm3 (0.1-1.0); Monocytes % 5.1 % (1.7-9.3); Neutrophils # 9.3 K/mm3 (1.8-7.8); Neutrophils % 70.1 % (37.0-80.0); Platelet Count 354 K/mm3 (142-424); Red Blood Count 5.34 M/mm3 (4.20-5.40); Red Cell Distribution Width 13.4 % (11.5-17.5); White Blood Count 13.3 K/mm3 (4.8-10.8)
[2021-05-31 19:34] LABS: Alanine Aminotransferase 61 U/L (12-78); Albumin Level 4.4 g/dl (3.5-5.0); Albumin/Globulin Ratio 1.2 (1.1-1.8); Alkaline Phosphatase 86 U/L (38-126); Anion Gap 11.3 mEq/L (5-15); Aspartate Amino Transferase 55 U/L (14-36); Bilirubin,Total 0.4 mg/dl (0.2-1.3); Blood Urea Nitrogen 9 mg/dl (7-17); Calcium 9.7 mg/dl (8.4-10.2); Carbon Dioxide 25 mmol/L (22.0-30.0); Chloride 106 mmol/L (98-107); Chol/HDL Ratio 3.5 (1-3.5); Cholesterol 194 mg/dl (140-200); Estimated Glomerular Filt Rate 132 ml/min (>60); GFR (African American) 160 ML/MIN (>60); Globulin 3.6 g/dL (1.3-3.2); Glucose 81 mg/dl (74-100); HDL Cholesterol 55 mg/dl (40-60); Potassium 4.3 mmoL/L (3.5-5.1); Sodium 138 mmol/L (136-145); Triglycerides 75 mg/dl (30-150); VLDL Cholesterol 15 mg/dL (0-40)
[2021-05-31 19:52] LABS: T4 (Thyroxine) 12.6 ug/dl (5.53-11.0)
[2021-05-31 19:53] LABS: 25-OH Vitamin D, Total 29.1 ng/mL (30-100)
[2021-05-31 20:05] LABS: Thyroid Stimulating Hormone 0.26 uIU/mL (0.465-4.68)
[2021-06-02 10:14] LABS: HIV Screen 4th Generation wRfx Non Reactive (Non Reactive); Hep A Ab, IgM Negative (Negative); Hep A Ab, Total Negative (Negative); Hep B Core Ab, Total Positive (Negative); Hep B Surface Ab, Qual Reactive (.); Hepatitis B Surface Antigen Negative (Negative); Hepatitis C Antibody >11.0 s/co ratio (0.0-0.9)
[2021-06-04 08:25] LABS: ALT (SGPT) P5P 62 IU/L (0-40); Alpha 2-Macroglobulins, Qn 263 mg/dL (110-276); Apolipoprotein A-1 131 mg/dL (116-209); Bilirubin, Total 0.2 mg/dL (0.0-1.2); Fibrosis Score 0.16 (0.00-0.21); GGT 48 IU/L (0-60); Haptoglobin 201 mg/dL (42-296); Necroinflammat Activity Grade A1-Minimal activity (.); Necroinflammat Activity Score 0.32 (0.00-0.17)
[2021-06-05 18:22] LABS: HCV Genotype Charge YES; Hepatitis C Genotype 1a (.)
== END ==
PROVIDERS: Visit Provider Nurse Practitioner Family
DX: I10 Essential (primary) hypertension (principal); F19.11 Other psychoactive substance abuse, in remission; E66.9 Obesity, unspecified; Z68.30 Body mass index [BMI] 30.0-30.9, adult; Z87.898 Personal history of other specified conditions; Z11.4 Encounter for screening for human immunodeficiency virus [HIV]; Z72.0 Tobacco use
CPT/HCPCS: 80053; 80061; 81596; 82306; 84436; 84443; 85025; 86703; 86704; 86706; 86708; 87340; 87380; 87522; 87902; G0432

== ENCOUNTER → 2021-07-12 12:42 | Outpatient (CLI) | payer OTHER, SELFPAY ==
--- NOTE | 2021-07-12 12:42 | MM_ITS ---
The PROCEDURE INFORMATION: Exam: Bilateral Diagnostic Breast Tomosynthesis Exam date and time: 07/12/2021 12:42 PM Age: 46 years old Clinical indication: Bilateral palpable masses TECHNIQUE: Imaging protocol: Bilateral Diagnostic tomosynthesis and 2D mammography including computer-aided detection (CAD) when performed. Unilateral or bilateral exam. COMPARISON: DMSB DIGITAL MAMM-SCREEN BILATERAL 03/19/2012 1:06 PM FINDINGS: MAMMOGRAPHY: The breast tissue is heterogeneously dense, which may obscure small masses. Skin markers were placed over bilateral upper outer quadrant palpable abnormalities. The spot compression views demonstrate normal overlapping fibroglandular structures on the right and a cluster of 3 masses on the left measuring 1.8, 1.6 and 1.3 cm respectively. These are likely on the basis of underlying cystic change. There is no stellate mass, architectural distortion or suspicious microcalcifications in either breast to suggest malignancy. No skin thickening or axillary adenopathy. IMPRESSION: Patient to return for bilateral breast ultrasound for full evaluation of bilateral upper outer quadrant palpable abnormalities ASSESSMENT: BI-RADS Category 0: Incomplete- Need Additional Imaging Evaluation and/or Prior Mammograms for Comparison
--- NOTE | 2021-07-12 12:42 | US_ITS ---
PROCEDURE INFORMATION: Exam: US Left Breast, Complete Exam date and time: 07/12/2021 12:42 PM Age: 46 years old Clinical indication: Patient recalled for further evaluation of bilateral palpable abnormalities as well as underlying coarse nodularity in the left upper outer quadrant seen on mammogram dated 07/12/2021 TECHNIQUE: Imaging protocol: Complete ultrasound of all four quadrants of the Left breast and the retroareolar regions, including ultrasound of the axilla when performed. COMPARISON: MG MM DIG MAMM BI DX W/CAD 07/12/2021 1:01 PM FINDINGS: Breast: Sonographic images of both breasts including the retroareolar regions, all 4 quadrants and the axilla do not demonstrate any solid masses. Palpable abnormality in the right 11 periareolar region corresponds to a 1.0 cm cyst. Additional 0.7 cm cyst in the right 9 o'clock periareolar region. 2.1 cm cyst in the left 1 o'clock periareolar region appears to correspond to the patient's complaint of a palpable abnormality. Additionally, 3 masses were seen in the left upper outer quadrant on mammogram dated 07/12/2021 . No architectural distortion or acoustical shadowing. No skin thickening or axillary adenopathy. IMPRESSION: Patient to return for left upper outer quadrant ultrasound for further evaluation probable underlying cystic change . Documentation of cm from the nipple is recommended. The masses seen on mammography are located in the middle third of the left upper outer quadrant approximately 5 cm distal to the nipple. Bilateral palpable abnormalities correspond to bilateral cystic change.Further evaluation of a palpable abnormality should be based on clinical grounds regardless of radiographic findings or lack thereof. ASSESSMENT: BI-RADS Category 0: Incomplete- Need Additional Imaging Evaluation and/or Prior Mammograms for Comparison
--- NOTE | 2021-07-12 12:42 | US_ITS ---
PROCEDURE INFORMATION: Please see sonogram report dated 07/12/2021. Assessment: BI-RADS Category 0: Incomplete- Need Additional Imaging Evaluation and/or Prior Mammograms for Comparison
== END ==
PROVIDERS: PCP Nurse Practitioner Family; Visit Provider Nurse Practitioner Family
DX: N63.20 Unspecified lump in the left breast, unspecified quadrant (principal); N63.10 Unspecified lump in the right breast, unspecified quadrant
CPT/HCPCS: 76641; 77062; 77066; G0279

== ENCOUNTER → 2021-08-23 19:34 | Outpatient (CLI) | payer OTHER, SELFPAY | PROVIDERS: PCP Nurse Practitioner Family; Visit Provider Nurse Practitioner Family | DX: Z20.822 Contact with and (suspected) exposure to COVID-19 (principal) | CPT/HCPCS: C9803; U0003; U0005 ==

== ENCOUNTER → 2021-09-13 16:53 | Outpatient (CLI) | payer OTHER, SELFPAY ==
[2021-09-13 17:41] LABS: Chloride 101 mmol/L (98-107); Sodium 138 mmol/L (136-145)
[2021-09-13 17:42] LABS: Potassium 4.1 mmoL/L (3.5-5.1)
[2021-09-13 17:44] LABS: Alanine Aminotransferase 16 U/L (12-78); Albumin Level 4.3 g/dl (3.5-5.0); Alkaline Phosphatase 62 U/L (38-126); Aspartate Amino Transferase 23 U/L (14-36); Bilirubin,Total 0.3 mg/dl (0.2-1.3); Blood Urea Nitrogen 8 mg/dl (7-17); Estimated Glomerular Filt Rate 90 ml/min (>60); GFR (African American) 109 ML/MIN (>60)
[2021-09-13 17:45] LABS: Albumin/Globulin Ratio 1.3 (1.1-1.8); Anion Gap 11.1 mEq/L (5-15); Calcium 9.6 mg/dl (8.4-10.2); Carbon Dioxide 30 mmol/L (22.0-30.0); Globulin 3.2 g/dL (1.3-3.2); Glucose 91 mg/dl (74-100); Total Protein,Serum 7.5 g/dl (6.3-8.2)
[2021-09-15 09:31] LABS: Hepatitis C Antibody >11.0 s/co ratio (0.0-0.9)
== END ==
PROVIDERS: Visit Provider Nurse Practitioner Family
DX: B18.2 Chronic viral hepatitis C (principal)
CPT/HCPCS: 36415; 80053; 87380; 87522; 87902

== ENCOUNTER → 2021-10-11 15:30 | Outpatient (CLI) | payer OTHER, SELFPAY ==
[2021-10-11 16:13] LABS: Basophils # 0.1 K/mm3 (0-0.2); Basophils % 0.8 % (0.1-2.0); Eosinophils # 0.4 K/mm3 (0.0-0.4); Eosinophils % 2.5 % (0.1-12.0); Hematocrit 47.1 % (37.0-47.0); Lymphocytes % 26.7 % (10-50); Mean Corpuscular HGB Conc 33.9 g/dL (31.8-35.4); Mean Corpuscular Hemoglobin 30.5 pg (27.0-31.2); Mean Corpuscular Volume 90.1 fl (81-99); Mean Platelet Volume 7.6 fl (7.4-10.4); Monocytes # 0.9 K/mm3 (0.1-1.0); Monocytes % 5.9 % (1.7-9.3); Neutrophils # 9.5 K/mm3 (1.8-7.8); Neutrophils % 64.1 % (37.0-80.0); Platelet Count 328 K/mm3 (142-424); Red Blood Count 5.23 M/mm3 (4.20-5.40); Red Cell Distribution Width 13.1 % (11.5-17.5); White Blood Count 14.9 K/mm3 (4.8-10.8)
[2021-10-11 16:39] LABS: Alanine Aminotransferase 17 U/L (12-78); Albumin Level 4.3 g/dl (3.5-5.0); Albumin/Globulin Ratio 1.4 (1.1-1.8); Alkaline Phosphatase 56 U/L (38-126); Anion Gap 11.8 mEq/L (5-15); Aspartate Amino Transferase 25 U/L (14-36); Bilirubin,Total 0.3 mg/dl (0.2-1.3); Blood Urea Nitrogen 14 mg/dl (7-17); Calcium 9.7 mg/dl (8.4-10.2); Carbon Dioxide 28 mmol/L (22.0-30.0); Chloride 102 mmol/L (98-107); Estimated Glomerular Filt Rate 107 ml/min (>60); GFR (African American) 130 ML/MIN (>60); Glucose 91 mg/dl (74-100); Potassium 4.8 mmoL/L (3.5-5.1); Sodium 137 mmol/L (136-145); Total Protein,Serum 7.3 g/dl (6.3-8.2)
[2021-10-13 10:18] LABS: Hepatitis C Antibody >11.0 s/co ratio (0.0-0.9)
[2021-10-15 05:09] LABS: ALT (SGPT) P5P 16 IU/L (0-40); Alpha 2-Macroglobulins, Qn 229 mg/dL (110-276); Apolipoprotein A-1 115 mg/dL (116-209); Bilirubin, Total 0.1 mg/dL (0.0-1.2); Fibrosis Score 0.05 (0.00-0.21); GGT 11 IU/L (0-60); Haptoglobin 228 mg/dL (42-296); Necroinflammat Activity Grade A0-No activity (.); Necroinflammat Activity Score 0.04 (0.00-0.17)
== END ==
PROVIDERS: Visit Provider Nurse Practitioner Family
DX: B19.20 Unspecified viral hepatitis C without hepatic coma (principal)
CPT/HCPCS: 80053; 81596; 85025; 87380; 87522

== ENCOUNTER → 2022-02-18 16:36 | Outpatient (CLI) | payer OTHER, SELFPAY ==
[2022-02-18 17:54] LABS: Basophils # 0.2 K/mm3 (0-0.2); Eosinophils # 0.4 K/mm3 (0.0-0.4); Eosinophils % 2.6 % (0.1-12.0); Hematocrit 43.4 % (37.0-47.0); Hemoglobin 13.7 g/dL (12.2-16.2); Lymphocytes # 3.3 K/mm3 (0.7-4.5); Lymphocytes % 21.6 % (10-50); Mean Corpuscular HGB Conc 31.6 g/dL (31.8-35.4); Mean Corpuscular Hemoglobin 28.5 pg (27.0-31.2); Mean Corpuscular Volume 90.2 fl (81-99); Mean Platelet Volume 8.2 fl (7.4-10.4); Monocytes # 1.1 K/mm3 (0.1-1.0); Monocytes % 6.8 % (1.7-9.3); Neutrophils # 10.5 K/mm3 (1.8-7.8); Neutrophils % 68.2 % (37.0-80.0); Platelet Count 320 K/mm3 (142-424); Red Blood Count 4.81 M/mm3 (4.20-5.40); Red Cell Distribution Width 13.8 % (11.5-17.5); White Blood Count 15.4 K/mm3 (4.8-10.8)
[2022-02-18 18:03] LABS: Alanine Aminotransferase 20 U/L (12-78); Albumin/Globulin Ratio 1.3 (1.1-1.8); Alkaline Phosphatase 65 U/L (38-126); Anion Gap 12.9 mEq/L (5-15); Aspartate Amino Transferase 22 U/L (14-36); Blood Urea Nitrogen 11 mg/dl (7-17); Calcium 9.7 mg/dl (8.4-10.2); Carbon Dioxide 29 mmol/L (22.0-30.0); Chloride 100 mmol/L (98-107); Estimated Glomerular Filt Rate 90 ml/min (>60); GFR (African American) 109 ML/MIN (>60); Globulin 3.1 g/dL (1.3-3.2); Glucose 89 mg/dl (74-100); Potassium 4.9 mmoL/L (3.5-5.1); Sodium 137 mmol/L (136-145); Total Protein,Serum 7.1 g/dl (6.3-8.2)
[2022-02-18 18:06] LABS: Bilirubin,Total < 0.1 mg/dl (0.2-1.3)
[2022-02-18 18:07] LABS: MANUAL DIFFERENTIAL MANUAL DIFFERENTIAL (MANUAL DIFF)
[2022-02-19] LABS: Eosinophils % 3 % (0-3); Lymphocytes % 18 % (10-50); Monocytes % 2 % (2-9); Neutrophils % 77 % (42-76); Platelet Estimate Normal; RBC Morphology Normal; Total Cells Counted 100
[2022-02-20 10:28] LABS: Hepatitis C Antibody >11.0 s/co ratio (0.0-0.9)
== END ==
PROVIDERS: PCP Nurse Practitioner Family; Visit Provider Nurse Practitioner Family
DX: B18.2 Chronic viral hepatitis C (principal)
CPT/HCPCS: 80053; 85007; 85025; 87380; 87522

== ENCOUNTER → 2022-06-24 16:17 | Outpatient (CLI) | payer OTHER, SELFPAY ==
--- NOTE | 2022-06-24 16:24 | CA_ITS ---
FINAL REPORT TECHNIQUE: Graded compression, spectral analysis and ultrasound images of the venous system of the left upper extremity were obtained. CLINICAL HISTORY: r/o thrombosis, LUE erythema, pain, swelling, Hx-IV drug abuse. FINDINGS: The jugular vein, subclavian vein, axillary vein, brachial vein, cephalic vein and basilic venous system are fully compressible and demonstrate no evidence of thrombosis. IMPRESSION: No evidence of thrombosis of the venous system of the left upper extremity. Reviewed, Interpreted and Dictated by Osbaldo Kelly MD Transcribed by Joaquín Laguerre Authenticated and [facility]
== END ==
PROVIDERS: PCP Nurse Practitioner Family; Visit Provider Student in an Organized Health Care Education/Training Program
DX: M79.602 Pain in left arm (principal); L98.9 Disorder of the skin and subcutaneous tissue, unspecified; M79.89 Other specified soft tissue disorders
CPT/HCPCS: 93971

== ENCOUNTER 2023-09-08 15:49 | Outpatient (CLI) | payer OTHER, SELFPAY ==
--- NOTE | 2023-09-08 15:56 | XR_ITS ---
FINAL REPORT CLINICAL HISTORY: thoracic back pain FINDINGS: THORACIC SPINE SERIES. Two views demonstrate no fracture. The disc spaces are maintained. There is less than 10 degrees of thoracic scoliosis convex to the left. There is minimal anterior osteophyte formation in the mid thoracic spine. There is no malalignment. IMPRESSION: No acute process. Reviewed, Interpreted and Dictated by Osbaldo Kelly MD Transcribed by Joaquín Laguerre Authenticated and [facility]
== END 2023-09-08 23:59 ==
LOC: RAD 15:52
PROVIDERS: PCP Nurse Practitioner Family; Visit Provider Nurse Practitioner Family
DX: M54.6 Pain in thoracic spine (principal)
CPT/HCPCS: 72070

== ENCOUNTER 2023-10-16 12:36 | Outpatient (CLI) | payer OTHER, SELFPAY ==
[2023-10-16 12:36] LABS: Coronavirus 19, PCR Not Detected (NotDetected); Influenza A, PCR Not Detected (NotDetected); Influenza B, PCR Not Detected (NotDetected)
== END 2023-10-16 23:59 ==
LOC: LAB.DROPOF 12:37
PROVIDERS: PCP Nurse Practitioner Family; Visit Provider Nurse Practitioner Family
DX: R50.9 Fever, unspecified (principal); R68.89 Other general symptoms and signs
CPT/HCPCS: 87636

== ENCOUNTER 2024-02-08 15:52 | Outpatient (CLI) | payer OTHER, SELFPAY ==
--- NOTE | 2024-02-08 16:00 | XR_ITS ---
FINAL REPORT CLINICAL HISTORY: left hip pain FINDINGS: LEFT HIP: Two views of the left hip demonstrate no acute fracture or dislocation. The joint spaces appear normal. The visualized bony structures are well aligned. No soft tissue abnormality is seen. IMPRESSION: No acute bony abnormality. Reviewed, Interpreted and Dictated by Maria Alejandra Gee MD Transcribed by Caitlyn Paul Authenticated and [facility]
== END 2024-02-08 23:59 | disposition home or self-care (01) ==
LOC: RAD 15:57
PROVIDERS: PCP Nurse Practitioner Family; Visit Provider Nurse Practitioner Family
DX: M25.552 Pain in left hip (principal)
CPT/HCPCS: 73502

== ENCOUNTER 2024-02-10 13:16 | Outpatient (CLI) | payer OTHER, SELFPAY ==
[2024-02-10 13:16] LABS: Coronavirus 19, PCR Not Detected (NotDetected); Influenza A, PCR Not Detected (NotDetected); Influenza B, PCR Not Detected (NotDetected)
== END 2024-02-10 23:59 | disposition home or self-care (01) ==
LOC: LAB.DROPOF 13:16
PROVIDERS: PCP Nurse Practitioner Family; Visit Provider Nurse Practitioner Family
DX: R50.9 Fever, unspecified (principal)
CPT/HCPCS: 87636

== ENCOUNTER 2024-03-04 13:40 | Outpatient (CLI) | payer OTHER, SELFPAY ==
--- NOTE | 2024-03-04 13:40 | MR_ITS ---
FINAL REPORT CLINICAL HISTORY: Left hip pain with decreased range of motion FINDINGS: Multiplanar MR imaging of the left hip was performed after the intra-articular injection of dilute gadolinium solution. There is no evidence of fracture or dislocation. There is no evidence of avascular necrosis. No bony mass is identified. No labral tear is identified. The tendons are intact. The musculature is intact. No soft tissue mass or cyst is identified. IMPRESSION: No focal abnormality identified. Reviewed, Interpreted and Dictated by Radha Chávez MD Transcribed by Brenda Roach Authenticated and [facility]
[2024-03-04 14:00] LABS: Blood Urea Nitrogen 13 mg/dl (7-17); Estimated Glomerular Filt Rate 76 ml/min (>60); GFR (African American) 92 ML/MIN (>60)
[2024-03-04] MEDS: GADOTERIDOL INJ 20ML SYRINGE 16 ML IV (14:52)
== END 2024-03-04 23:59 | disposition home or self-care (01) ==
LOC: RAD 13:40
PROVIDERS: PCP Nurse Practitioner Family; Visit Provider Nurse Practitioner Family
DX: M25.652 Stiffness of left hip, not elsewhere classified (principal)
CPT/HCPCS: 36415; 73723; 82565; 84520; A9576

== ENCOUNTER 2025-03-27 09:47 | Outpatient (CLI) | payer MEDICAID, SELFPAY ==
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
--- NOTE | 2025-03-27 09:50 | XR_ITS ---
FINAL REPORT CLINICAL HISTORY: thoracic back painx 2+ months, numbness & knots COMPARISON: None FINDINGS: Two views of the thoracic spine were obtained. There is no fracture present. There is no malalignment. Minimal degenerative disc disease and endplate spurring of the inferior half of the thoracic spine. IMPRESSION: Degenerative changes as above. Reviewed, Interpreted and Dictated by Maria Alejandra Gee MD Transcribed by Yanna Jose Authenticated and [facility]
[2025-03-27 10:50] LABS: Hematocrit 49.2 % (37.0-47.0); Hemoglobin 16.1 g/dL (12.2-16.2); Immature Granulocytes % 0.5 %; Mean Corpuscular HGB Conc 32.7 g/dL (31.8-35.4); Mean Corpuscular Hemoglobin 29.0 pg (27.0-31.2); Mean Corpuscular Volume 88.6 fl (81-99); Nucleated Red Blood Cells % 0 %; Platelet Count 309 K/mm3 (142-424); Red Blood Count 5.55 M/mm3 (4.20-5.40); Red Cell Distribution Width-SD 44.0 fL; White Blood Count 14.2 K/mm3 (4.8-10.8)
[2025-03-27 11:15] LABS: Albumin Level 4.2 g/dl (3.5-5.0)
[2025-03-27 11:16] LABS: Chloride 99 mmol/L (98-107); Potassium 4.8 mmoL/L (3.5-5.1); Sodium 138 mmol/L (136-145)
[2025-03-27 11:18] LABS: Alanine Aminotransferase 17 U/L (12-78); Albumin/Globulin Ratio 1.4 (1.1-1.8); Alkaline Phosphatase 67 U/L (38-126); Anion Gap 11.8 mEq/L (5-15); Aspartate Amino Transferase 22 U/L (14-36); Bilirubin,Total 0.4 mg/dl (0.2-1.3); Blood Urea Nitrogen 14 mg/dl (7-17); Carbon Dioxide 32 mmol/L (22.0-30.0); Cholesterol 221 mg/dl (140-200); Creatinine,Serum 0.70 mg/dl (0.52-1.04); Estimated Glomerular Filt Rate 89 ml/min (>60); GFR (African American) 107 ML/MIN (>60); Globulin 3.1 g/dL (1.3-3.2); Total Protein,Serum 7.3 g/dl (6.3-8.2); Triglycerides 129 mg/dl (30-150)
[2025-03-27 11:19] LABS: Calcium 9.8 mg/dl (8.4-10.2); Glucose 109 mg/dl (74-100); HDL Cholesterol 39 mg/dl (40-60); Magnesium 1.8 mg/dl (1.6-2.3)
[2025-03-27 11:25] LABS: C-Reactive Protein 7.9 mg/L (0-4)
[2025-03-27 11:53] LABS: Thyroid Stimulating Hormone 0.29 uIU/mL (0.465-4.68)
[2025-03-27 11:56] LABS: Ferritin 38.1 ng/ml (6.24-137)
[2025-03-27 14:26] LABS: Vitamin B12 807 pg/mL (239-931)
[2025-03-28 08:17] LABS: FSH 60.5 mIU/mL (.); LH 44.7 mIU/mL (.); Testosterone,Total 8 ng/dL (4-50); Triiodothyronine (T3) Free 3.1 pg/mL (2.0-4.4)
[2025-03-28 12:18] LABS: Antinuclear Antibodies (ANA) Negative (Negative)
== END 2025-03-27 23:59 | disposition home or self-care (01) ==
LOC: LAB 09:49
PROVIDERS: PCP Nurse Practitioner Family; Visit Provider Nurse Practitioner Family
DX: N91.2 Amenorrhea, unspecified (principal); M54.6 Pain in thoracic spine; R23.2 Flushing; M54.50 Low back pain, unspecified; I10 Essential (primary) hypertension; R41.3 Other amnesia
CPT/HCPCS: 36415; 72072; 72100; 80053; 80061; 82607; 82670; 82728; 83001; 83002; 83735; 84144; 84403; 84443; 84481; 85025; 86038; 86140

== ENCOUNTER 2025-04-19 10:43 | Outpatient (CLI) | payer MEDICAID, SELFPAY ==
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
--- OUTSIDE RECORDS SUMMARY | 2025-04-19 11:00 | XMS_ITS | Clinical Summary ---
Author Organization Healthcare Address [address] [place] [address] Care Team Providers Care Boat Builder Name Role Phone Jovan Maciel MD Primary Care Provider + [phone] Family History Medical History Relation Name Comments Arthritis Mother Heart attack Mother Hypertension Mother Obesity Mother Other cancer Mother Stroke Mother Relation Name Status Comments Mother Social History Tobacco Use Types Packs/Day Years Used Date Smoking Tobacco: Every Day Alcohol Use Standard Drinks/Week Comments Yes 0 (1 standard drink = 0.6 oz pur e alcohol) Comments Unknown Sex and Gender Information Value Date Recorded Sex Assigned at Not on file Legal Sex Female 7:00 PM EDT Gender Identity Not on file Sexual Orientation Not on file Last Filed Vital Signs Vital Sign Reading Time Taken Comments Blood Pressure - - Pulse - - Temperature - - Respiratory Rate - - Oxygen Saturation - - Inhaled Oxygen Concentration - - Weight 78 kg (172 lb 0.1 oz) 01/25/2015 10:50 AM EDT Height 167.6 cm (5' 6 ) 01/25/2015 10:50 AM EDT Body Mass Index 27.76 01/25/2015 10:50 AM EDT Plan of Treatment Not on file Care Teams Boat Builder Relationship Specialty Start Date End Date Jovan Maciel MD [address] [place] [address] PCP - General 12/28/20
[2025-04-19 11:14] LABS: Hematocrit 47.3 % (37.0-47.0); Hemoglobin 16.3 g/dL (12.2-16.2); Immature Granulocytes % 0.5 %; Mean Corpuscular HGB Conc 34.5 g/dL (31.8-35.4); Mean Corpuscular Hemoglobin 30.0 pg (27.0-31.2); Mean Corpuscular Volume 86.9 fl (81-99); Nucleated Red Blood Cells % 0 %; Platelet Count 326 K/mm3 (142-424); Red Blood Count 5.44 M/mm3 (4.20-5.40); Red Cell Distribution Width-SD 42.7 fL; White Blood Count 12.7 K/mm3 (4.8-10.8)
[2025-04-19 12:30] LABS: Cholesterol 216 mg/dl (140-200); HDL Cholesterol 36 mg/dl (40-60); Triglycerides 101 mg/dl (30-150)
[2025-04-19 12:48] LABS: Free T4 (Free Thyroxine) 1.51 ng/dl (0.78-2.19)
[2025-04-19 12:51] LABS: T4 (Thyroxine) 9.8 ug/dl (5.53-11.0)
[2025-04-19 13:04] LABS: Thyroid Stimulating Hormone 0.29 uIU/mL (0.465-4.68)
[2025-04-20 13:13] LABS: Antinuclear Antibodies (ANA) Negative (Negative); Triiodothyronine (T3) Free 3.2 pg/mL (2.0-4.4)
== END 2025-04-19 23:59 | disposition home or self-care (01) ==
LOC: LAB 10:44
PROVIDERS: PCP Nurse Practitioner Family; Visit Provider Nurse Practitioner Family
DX: N91.2 Amenorrhea, unspecified (principal); I10 Essential (primary) hypertension; R23.2 Flushing
CPT/HCPCS: 36415; 80061; 84436; 84439; 84443; 84481; 85025; 86376; 86800

== ENCOUNTER 2025-04-25 12:52 | Outpatient (RCR) | payer MEDICAID, SELFPAY ==
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
== END 2025-04-25 23:59 | disposition home or self-care (01) ==
LOC: PT 12:52
PROVIDERS: PCP Nurse Practitioner Family; Visit Provider Nurse Practitioner Family
DX: M54.6 Pain in thoracic spine (principal); M54.50 Low back pain, unspecified
CPT/HCPCS: 97162

== ENCOUNTER 2025-04-26 14:47 | Outpatient (CLI) | payer MEDICAID, SELFPAY ==
--- OUTSIDE RECORDS SUMMARY | 2025-04-26 14:53 | XMS_ITS | Clinical Summary ---
Author Organization Healthcare Address [address] [place] [address] Care Team Providers Care Judo Instructor Name Role Phone Jovan Maciel MD Primary Care Provider + [phone] Family History Medical History Relation Name Comments [...] of Treatment Not on file Care Teams Judo Instructor Relationship Specialty Start Date End Date Jovan Maciel MD [address] [place] [address] PCP - General 12/28/20
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
[2025-04-26 16:19] LABS: Uric Acid 6.2 mg/dl (2.5-6.2)
[2025-04-26 17:09] LABS: Hepatitis C Ab Qual. W/ RFX REACTIVE (Negative)
== END 2025-04-26 23:59 | disposition home or self-care (01) ==
LOC: LAB 14:48
PROVIDERS: PCP Nurse Practitioner Family; Visit Provider Nurse Practitioner Family
DX: Z11.59 Encounter for screening for other viral diseases (principal); Z11.4 Encounter for screening for human immunodeficiency virus [HIV]; M25.50 Pain in unspecified joint; R76.8 Other specified abnormal immunological findings in serum
CPT/HCPCS: 36415; 84550; 86803; 87389; 87522

== ENCOUNTER 2025-05-05 04:02 | Emergency (ER) | payer MEDICAID, SELFPAY ==
[2025-05-05 04:08] VITALS: BP 148/105; PULSE 94; RESP 16; TEMP 37; O2SAT 100; BMI 28.2
--- OUTSIDE RECORDS SUMMARY | 2025-05-05 04:08 | XMS_ITS | Clinical Summary ---
Author Organization Healthcare Address [address] [place] [address] Care Team Providers Care Director Appointment Name Role Phone Jovan Maciel MD Primary Care Provider + [phone] Family History Medical History Relation Name Comments [...] of Treatment Not on file Care Teams Director Appointment Relationship Specialty Start Date End Date Jovan Maciel MD [address] [place] [address] PCP - General 12/28/20
[2025-05-05 04:13] VITALS: BP 148/105; PULSE 94; RESP 16; TEMP 37; O2SAT 100
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
[2025-05-05] MEDS: ACETAMINOPHEN 500MG TAB 1000 MG PO (04:27)
[2025-05-05] MEDS: MIDAZOLAM 2MG/2ML VIAL 1 MG IM (04:27)
[2025-05-05] MEDS: KETOROLAC 30MG/ML VIAL 30 MG IM (04:27)
[2025-05-05] MEDS: METHOCARBAMOL 500MG TABLET 500 MG PO (04:28)
[2025-05-05] MEDS: LIDOCAINE 5% TRANSDERMAL PATCH 1 EACH TD (04:28)
[2025-05-05 04:46] VITALS: BP 138/89; PULSE 83; RESP 16; TEMP 37; O2SAT 95
== END 2025-05-05 04:47 | disposition home or self-care (01) ==
PROVIDERS: Emergency Provider Emergency Medicine; PCP Nurse Practitioner Family
DX: M54.2 Cervicalgia (principal); M62.838 Other muscle spasm; F17.210 Nicotine dependence, cigarettes, uncomplicated
CPT/HCPCS: 96372; 99283; 99284; J1885; J2250

== ENCOUNTER 2025-07-19 12:56 | Outpatient (CLI) | payer MEDICAID, SELFPAY ==
--- OUTSIDE RECORDS SUMMARY | 2025-06-20 10:15 | XMS_ITS | Encounter Summary ---
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 / Unknown Venipuncture / Unknown 06/20/2025 11:44 AM EST 06/20/2025 11:47 AM EST Ze-gen DO LAB BLOOD ORDERABLES Final Resu lt Performing Organization Address City/[facility]/ZIP Co de Phone Number [facility] [address] [place] [address] * C3 Complement (06/20/2025 11:44 AM EST) C3 Complement 123 84 - 166 mg/dL 06/20/2025 1:36 PM EST [facility] Blood Venous blood specimen / Unknown Venipuncture / Unknown 06/20/2025 11:44 AM EST 06/20/2025 11:47 AM EST Re Kofikafe DO LAB BLOOD ORDERABLES Final Resu lt Performing Organization Address [facility] Co de Phone Number [facility] [address] [place] [address] * Chavez (OCTAVIA) Antibody, IgG (06/20/2025 11:44 AM EST) Chavez (OCTAVIA) Antibody, IgG 3 0 - 40 AU/mL 06/22/2025 12:00 AM EST [facility] ([facility]) Serum 06/20/2025 11:4 4 AM EST 06/20/2025 11:47 AM EST Narrative [facility] ([place]) - 06/22/2025 12:00 AM EST INTERPRETIVE INFORMATION: Chavez (OCTAVIA) Antibody, IgG 29 AU/mL or Less ............. Negative 30 - 40 AU/mL ................ Equivocal 41 AU/mL or Greater .......... Positive Chavez antibody is highly specific (greater than 90 percent) for systemic lupus erythematosus (SLE) but only occurs in 30-35 percent of SLE cases. The presence of antibodies to Chavez has variable associations with SLE clinical manifestations. Performed By: [facility] [address] [place] [id number] Sales Agent Insurance: Augustine Carlin MD, PhD CLIA Number: [id number] Ze-gen DO LAB REF LAB BLOOD AND FLUID ORD Final Result [facility] ([place]) [address] [place] [address] * Double-Stranded DNA (dsDNA) Antibody, IgG by IFA (06/20/2025 11:44 AM EST) Double-Strande d DNA (dsDNA) Ab IgG IFA <1:10 <1:10 06/23/2025 10:07 AM EST [facility] [employer] [facility] ([place]) Blood Venous blood specimen / Unknown Venipuncture / Unknown 06/20/2025 11:44 AM EST 06/20/2025 11:47 AM EST Narrative [facility] [employer] ADEN) - 06/23/2025 10:07 AM EST INTERPRETIVE INFORMATION: Double-Stranded DNA (dsDNA) Antibody, IgG by IFA (using Crithidia luciliae) Positivity for anti-double stranded DNA (anti-dsDNA) IgG antibody is a diagnostic criterion of systemic lupus erythematosus (SLE). The presence of the anti-dsDNA IgG antibody is identified by IFA titer (Crithidia luciliae indirect fluorescent test [CAMILLE]). CAMILLE is highly specific for SLE with a sensitivity of 50-60 percent. Some patients with early or inactive SLE may be positive for anti-dsDNA IgG by ROBERTA but negative by CAMILLE. If the CAMILLE result is negative but the patient has a positive ROBERTA and clinical suspicion remains, consider antinuclear antibody (GOGO) testing by IFA. Additional information and recommendations for testing may be found at [email or web address]. Performed By: [facility] [address] [place], [place] [phone] Sales Agent Insurance: Augustine Carlin MD, PhD CLIA Number: [id number] us Re Dumont DO LAB BLOOD ORDERABLES Final Resu lt [facility] [employer] ADEN) [address] [place], [place] [id number] * Antinuclear Antibody (GOGO), HEp-2, IgG (06/20/2025 11:44 AM EST) GOGO INTERPRETIVE COMMENT See Note 06/22/2025 9:24 AM EST [facility] Irving[facility]ASHA) Anti Nuc Ab Screen <1:80 <1:80 06/22/2025 9:24 AM EST [facility] ([place]) Blood Venous blood specimen / Unknown Venipuncture / Unknown 06/20/2025 11:44 AM EST 06/20/2025 11:47 AM EST Narrative SUSHMA SAMANIEGO) - 06/22/2025 9:24 AM EST Clinical Interpretation: Antinuclear antibodies by IFA negative for homogeneous, speckled, nucleolar, centromere, and nuclear dots patterns. Cytoplasmic antibodies by IFA negative for reticular/AMA, discrete/GW body-like, polar/golgi-like, rods and rings, and cytoplasmic speckled patterns. INTERPRETIVE INFORMATION: GOGO Interpretive Comment Presence of antinuclear antibodies (GOGO) is a hallmark feature of systemic autoimmune rheumatic diseases (SARD). However, GOGO lacks diagnostic specificity and is associated with a variety of diseases (cancers, autoimmune, infectious, and inflammatory conditions) and may also occur in healthy individuals in varying prevalence. The lack of diagnostic specificity requires confirmation of positive GOGO by more specific serologic tests. GOGO (nuclear reactivity) positive patterns reported include centromere, homogeneous, nuclear dots, nucleolar, or speckled. GOGO (cytoplasmic reactivity) positive patterns reported include reticular/AMA, discrete/GW body-like, polar/golgi-like, cytoplasmic speckled or rods and rings. All positive patterns are reported to endpoint titers (1:2560). Reported patterns may help guide differential diagnosis, although they may not be specific for individual antibodies or diseases. Mitotic staining patterns not reported. Negative results do not necessarily rule out SARD. Performed By: [facility] [address] [phone] Sales Agent Insurance: Augustine Carlin MD, PhD CLIA Number: [id number] us Re Dumont DO LAB BLOOD ORDERABLES Final Resu lt [facility] [employer] ADEN) [address] [place] [address] * Sedimentation Rate, Automated (06/20/2025 11:44 AM EST) Sedimentation Rate 18 <30 mm/hr 2024 2:[address] [facility] Blood Venous blood specimen / Unknown Venipuncture / Unknown 06/20/2025 11:44 AM EST 06/20/2025 11:47 AM EST Ze[employer] DO LAB BLOOD ORDERABLES Final Resu lt Performing Organization Address [facility]/ZIP Co de Phone Number [facility] [address] [place] [address] * C-Reactive Protein, Plasma (06/20/2025 11:44 AM EST) CRP, Plasma 5.4 <=8.0 mg/L 06/20/2025 1:[address] [facility] Blood Venous blood specimen / Unknown Venipuncture / Unknown 06/20/2025 11:44 AM EST 06/20/2025 11:[address] [facility] - 06/20/2025 1:43 PM EST This CRP test is appropriate for assessment of infection, systemic inflammation and/or tissue injury. To assess cardiovascular disease risk order high sensitivity CRP (CRPH). [facility] LAB BLOOD ORDERABLES Final Resu lt Performing Organization Address [facility] Co de Phone Number [facility] [address] [place] [address] * (ABNORMAL) Comprehensive Metabolic Panel, Plasma (06/20/2025 11:44 AM EST) Glucose, Plasma 114(H) 74 - 99 mg/dL 06/20/2025 1:[address] [facility] BUN, Plasma 13 7 - 21 mg/dL 06/20/2025 1:[address] [facility] Creatinine, Plasma 0.80 0.60 - 1.10 mg/dL 06/20/2025 1:[address] [facility] BUN/Creatinine Ratio 16 06/20/2025 1:[address] [facility] Sodium, Plasma 138 136 - 145 mmol/L 06/20/2025 1:[address] [facility] Potassium, Plasma 3.9 3.6 - 4.9 mmol/L 06/20/2025 1:[address] [facility] Chloride, Plasma 101 97 - 107 mmol/L 06/20/2025 1:[address] [facility] CO2, Plasma 27 22 - 29 mmol/L 06/20/2025 1:[address] [facility] Anion Gap 10 6 - 16 mmol/L 06/20/2025 1:[address] [facility] Total Calcium, Plasma 9.2 8.9 - 10.2 mg/dL 06/20/2025 1:[address] [facility] Total Protein 7.1 6.3 - 7.9 g/dL 06/20/2025 1:[address] [facility] Albumin, Plasma 4.0 3.5 - 5.2 g/dL 06/20/2025 1:[address] [facility] AST, Plasma 15 10 - 35 U/L 06/20/2025 1:[address] [facility] ALT, Plasma 11 10 - 35 U/L 06/20/2025 1:[address] [facility] Alkaline Phosphatase, Plasma 62 35 - 104 U/L 06/20/2025 1:[address] [facility] Total Bilirubin, Plasma 0.4 0.2 - 1.1 mg/dL 06/20/2025 1:[address] [facility] eGFRcr 89.3 mL/min/1.7 3m*2 06/20/2025 1:[address] [facility] Comment:Reported eGFRcr in m L/min/1.73m2 is based the CKD-EPI 2020 equation that does not use a race coefficient. Blood Venous blood specimen / Unknown Venipuncture / Unknown 06/20/2025 11:44 AM EST 06/20/2025 11:47 AM EST us Re Dumont DO LAB BLOOD ORDERABLES Final Resu lt [facility] [address] [place] [address] * (ABNORMAL) CBC and Differential (06/20/2025 11:44 AM EST) WBC Count 14.04(H) 3.70 - 10.30 10*3/uL LAB HEMATOLOGY METHOD 06/20/2025 2:[address] [facility] RBC Count 5.11 3.90 - 5.20 10*6/uL LAB HEMATOLOGY METHOD 06/20/2025 2:[address] [facility] HGB 15.1 11.2 - 15.7 g/dL LAB HEMATOLOGY METHOD 06/20/2025 2:15 PM [facility] HCT 45.9(H) 34.0 - 45.0 % LAB HEMATOLOGY METHOD 06/20/2025 2:[address] [facility] Platelet Count 283 155 - 369 10*3/uL LAB HEMATOLOGY METHOD 06/20/2025 2:15 PM [facility] MCV 90 79 - 98 fL LAB HEMATOLOGY METHOD 06/20/2025 2:15 PM [facility] MCH 29.5 26.0 - 32.0 pg LAB HEMATOLOGY METHOD 06/20/2025 2:15 PM [facility] MCHC 32.9 30.7 - 35.5 g/dL LAB HEMATOLOGY METHOD 06/20/2025 2:15 PM [facility] RDW 14.5 11.5 - 14.5 % LAB HEMATOLOGY METHOD 06/20/2025 2:15 PM [facility] MPV 10.1 8.8 - 12.5 fL LAB HEMATOLOGY METHOD 06/20/2025 2:15 PM [facility] nRBC 0.0 <=0.0 per 100 WBCs LAB HEMATOLOGY METHOD 06/20/2025 2:15 PM [facility] Differential Type Automated LAB HEMATOLOGY METHOD 06/20/2025 2:15 PM [facility] Neutrophils % 69 % LAB HEMATOLOGY METHOD 06/20/2025 2:15 PM [facility] Lymphocytes % 21 % LAB HEMATOLOGY METHOD 06/20/2025 2:15 PM [facility] Monocytes % 6 % LAB HEMATOLOGY METHOD 06/20/2025 2:15 PM [facility] Eosinophils % 2 % LAB HEMATOLOGY METHOD 06/20/2025 2:15 PM [facility] Basophils % 1 % LAB HEMATOLOGY METHOD 06/20/2025 2:15 PM [facility] Immature Granulocytes % 1 % LAB HEMATOLOGY METHOD 06/20/2025 2:15 PM [facility] Neutrophils Absolute 9.80(H) 1.60 - 6.10 10*3/uL LAB HEMATOLOGY METHOD 06/20/2025 2:[address] [facility] Lymphocytes Absolute 2.88 1.20 - 3.90 10*3/uL LAB HEMATOLOGY METHOD 06/20/2025 2:[address] [facility] Monocytes Absolute 0.87 0.30 - 0.90 10*3/uL LAB HEMATOLOGY METHOD 06/20/2025 2:[address] [facility] Eosinophils Absolute 0.30 0.00 - 0.50 10*3/uL LAB HEMATOLOGY METHOD 06/20/2025 2:[address] [facility] Basophils Absolute 0.11(H) 0.00 - 0.10 10*3/uL LAB HEMATOLOGY METHOD 06/20/2025 2:[address] [facility] Immature Granulocytes Absolute 0.08(H) 0.00 - 0.06 10*3/uL LAB HEMATOLOGY METHOD 06/20/2025 2:[address] [facility] Blood Venous blood specimen / Unknown Venipuncture / Unknown 06/20/2025 11:44 AM EST 06/20/2025 11:[address] [facility] - 06/20/2025 2:15 PM EST Therapeutic decision making should be based on absolute values, rather than percentages. us Re Dumont DO LAB BLOOD ORDERABLES Final Resu lt [facility] [address] [place] [address] documented in this encounter Visit Diagnoses Diagnosis Polyarthralgia- Primary Pain in joint, multiple sites Bilateral hip pain Pain in joint, pelvic region and thigh Coccyx pain Other disorder of coccyx Chronic midline low back pain without sciatica documented in this encounter Additional Health Concerns Assessment Noted Time PHQ-9 Depression Total Score: 9 06/20/20 25 10:39 AM EST A fall risk assessment has been complete d for the patient 06/20/2025 10:39 AM EST A Body Mass Index follow-up plan has been documented for the patient 06/20/2025 11:26 AM EST documented as of this encounter Care Teams Sport Psychologist Relationship Specialty Start Date End Date Ayse Hamlin APRN [address] [phone] PCP - General 05/30/25 documented as of this encounter
--- OUTSIDE RECORDS SUMMARY | 2025-06-20 11:53 | XMS_ITS | Encounter Summary ---
Author Organization Healthcare Address [address] [place] [address] Care Team Providers Care Diffuser Operator Name Role Phone Ruth Hamlincatalina Sharpe APRN Primary Care Provider +1- [phone] Encounter Details Date Type Department Care Team (Latest Contact Info) Description 06/20/2025 11:53 AM EST - 06/20/2025 11:59 PM [facility] [address], [address] [place] [id number] Bilateral hip pain; Coccyx pain; Chronic midline low back pain without sciatica Discharge Disposition: Home or Self Care Social History Tobacco Use Types Packs/Day Years Used Date Smoking Tobacco: Every Day Cigarettes 1.5 37 Passive Smoke Exposure: Current Smokeless Tobacco: Never Alcohol Use Standard Drinks/Week Comments Not Currently [...] on file documented as of this encounter Functional Status * AUDIT-C Score [...] Questionnaire-9 Score 9 06/20/2025 10:39 AM Desirae Klesey RN * How difficult have these problems made it for you to do your work, take care of things at home, or get along with other people? Answer Date of Assessment Author Somewhat difficult 06/20/2025 10:39 AM Desirae Kelsey RN documented as of this encounter Medications at Time of Discharge busPIRone (Buspar) 10 MG tablet Take 1 tablet by mouth 3 times a day. 01/25/2015 CombiPatch 0.05-0.14 MG/DAY APPLY 1 PATCH TOPICALLY TWICE A WEEK APPLY 1 PATCH EVERY 3 DAYS ALTERNATING WITH 1 PATCH EVERY 4 DAYS 05/29/2025 famotidine (Pepcid) 40 MG tablet TAKE 1 TABLET BY MOUTH AT BEDTIME NIGHTLY 06/02/2025 hydrOXYzine pamoate (Vistaril) 25 MG capsule take 1 capsule by mouth three times daily as needed for anxiety lidocaine (Lidoderm) 5 % patch APPLY ONE PATCH TOPICALLY TO CLEAN, DRY SKIN. LEAVE ON FOR 12 HOURS THEN REMOVE. MUST WAIT AT LEAST 12 HOURS BEFORE APPLYING PATCH(ES) AGAIN. 05/05/2025 losartan-hydroCH LOROthiazide (Hyzaar) 50-12.5 MG tablet Take 1 tablet by mouth daily. 06/01/2025 meloxicam (Mobic) 15 MG tablet 06/16/2025 metoprolol succinate XL (Toprol-XL) 25 MG 24 hr tablet 06/19/2025 omeprazole (PriLOSEC) [address] capsule Take 1 capsule by mouth daily. 05/18/2025 sertraline (Zoloft) 50 MG tablet 06/16/2025 traZODone (Desyrel) 50 MG tablet Take 1 tablet by mouth daily. 05/22/2025 Ventolin HFA 108 (90 Base) MCG/ACT inhaler INHALE 2 PUFFS BY MOUTH EVERY 4 TO 6 HOURS NEEDED FOR SHORTNESS OF BREATH FOR WHEEZING 04/16/2025 documented as of this encounter Plan of Treatment Upcoming Encounters Date Type Department Care Team (Late st Contact Info) Description 09/26/2025 8:45 AM EST Office [facility] [address] [place] [address] JuliaRe, DO [address] [place] [address] Scheduled Orders Name Type Priority Associated Diagnoses Orde r Schedule XR Hip Left 2 or 3 Views Including Pelvis Imaging Routine Bilateral hip pain Coccyx pain Chronic midline low back pain without sciatica Once for 1 Occurrences starting 06/20/2025 until 06/20/2025 documented as of this encounter Procedures Procedure Name Priority Date/Time Associated Diagnosis Comments XR HIPS BILATERAL 2 VIEWS Routine 06/20/2025 12:37 PM EST Bilateral hip pain Coccyx pain Chronic midline low back pain without sciatica XR KNEE RIGHT 1 OR 2 VIEWS Routine 06/20/2025 12:37 PM EST Bilateral hip pain Coccyx pain Chronic midline low back pain without sciatica XR KNEE LEFT 1 OR 2 VIEWS Routine 06/20/2025 12:37 PM EST Bilateral hip pain Coccyx pain Chronic midline low back pain without sciatica documented in this encounter Results * XR Knee Right 1 or 2 Views (06/20/2025 12:37 PM EST) Anatomical Region Laterality Modality Lower Extremities, Knee Right Digital Radiography Impressions 06/20/2025 12:43 PM EST No acute osseous finding of the bilateral hips or knees. Mild osteoarthrosis of the bilateral knees. 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 CRITICAL RESULT: No. COMMUNICATION: Per this written report. Drafted by Vandana Hernandez MD on 06/20/2025 12:39 PM Final report signed by Vandana Hernandez MD on 06/20/2025 12:43 PM Narrative 06/20/2025 12:43 PM EST CLINICAL INDICATION: bilateral hip and pelvis pain TECHNIQUE: XR HIPS BILATERAL 2 VIEWS, XR KNEE LEFT 1 OR 2 VIEWS, XR KNEE RIGHT 1 OR 2 VIEWS COMPARISON: None. FINDINGS: Bilateral hips: No acute fracture or dislocation. No significant hip joint space loss. Right greater than left pelvic wing enthesopathy. The pubic symphysis and SI joints are intact. Right knee: No acute fracture dislocation. Mild medial and lateral compartment narrowing and chondrocalcinosis. Cortical irregularity of the patella articular surface, concerning for high-grade chondromalacia of the median sagittal range. No suprapatellar effusion. No severe soft tissue swelling. Left knee: No acute fracture or dislocation. Mild medial and lateral compartment narrowing. No suprasellar effusion. No soft tissue swelling. Procedure Note Vandana Hernandez MD - 06/20/2025 CLINICAL INDICATION: bilateral hip and pelvis pain TECHNIQUE: XR HIPS BILATERAL 2 VIEWS, XR KNEE LEFT 1 OR 2 VIEWS, XR KNEE RIGHT 1 OR 2VIEWS COMPARISON: None. FINDINGS: Bilateral hips: No acute fracture or dislocation. No significant hip jointspace loss. Right greater than left pelvic wing enthesopathy. The pubicsymphysis and SI joints are intact. Right knee: No acute fracture dislocation. Mild medial and lateralcompartment narrowing and chondrocalcinosis. Cortical irregularity of thepatella articular surface, concerning for high-grade chondromalacia of themedian sagittal range. No suprapatellar effusion. No severe soft tissueswelling. Left knee: No acute fracture or dislocation. Mild medial and lateralcompartment narrowing. No suprasellar effusion. No soft tissue swelling. IMPRESSION: No acute osseous finding of the bilateral hips or knees. Mildosteoarthrosis of the bilateral knees. 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 CRITICAL RESULT: No. COMMUNICATION: Per this written report. Drafted by Vandana Hernandez MD on 06/20/2025 12:39 PM Final report signed by Vandana Hernandez MD on 06/20/2025 12:43 PM us Re Dumont DO IMG XR PROCEDURES Final Result * XR Knee Left 1 or 2 Views (06/20/2025 12:37 PM EST) Anatomical Region Laterality Modality Lower Extremities, Knee Left Digital Radiography Impressions 06/20/2025 12:43 PM EST No acute osseous finding of the bilateral hips or knees. Mild osteoarthrosis of the bilateral knees. 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 CRITICAL RESULT: No. COMMUNICATION: Per this written report. Drafted by Vandana Hernandez MD on 06/20/2025 12:39 PM Final report signed by Vandana Hernandez MD on 06/20/2025 12:43 PM Narrative 06/20/2025 12:43 PM EST CLINICAL INDICATION: bilateral hip and pelvis pain TECHNIQUE: XR HIPS BILATERAL 2 VIEWS, XR KNEE LEFT 1 OR 2 VIEWS, XR KNEE RIGHT 1 OR 2 VIEWS COMPARISON: None. FINDINGS: Bilateral hips: No acute fracture or dislocation. No significant hip joint space loss. Right greater than left pelvic wing enthesopathy. The pubic symphysis and SI joints are intact. Right knee: No acute fracture dislocation. Mild medial and lateral compartment narrowing and chondrocalcinosis. Cortical irregularity of the patella articular surface, concerning for high-grade chondromalacia of the median sagittal range. No suprapatellar effusion. No severe soft tissue swelling. Left knee: No acute fracture or dislocation. Mild medial and lateral compartment narrowing. No suprasellar effusion. No soft tissue swelling. Procedure Note Vandana Hernandez MD - 06/20/2025 CLINICAL INDICATION: bilateral hip and pelvis pain TECHNIQUE: XR HIPS BILATERAL 2 VIEWS, XR KNEE LEFT 1 OR 2 VIEWS, XR KNEE RIGHT 1 OR 2VIEWS COMPARISON: None. FINDINGS: Bilateral hips: No acute fracture or dislocation. No significant hip jointspace loss. Right greater than left pelvic wing enthesopathy. The pubicsymphysis and SI joints are intact. Right knee: No acute fracture dislocation. Mild medial and lateralcompartment narrowing and chondrocalcinosis. Cortical irregularity of thepatella articular surface, concerning for high-grade chondromalacia of themedian sagittal range. No suprapatellar effusion. No severe soft tissueswelling. Left knee: No acute fracture or dislocation. Mild medial and lateralcompartment narrowing. No suprasellar effusion. No soft tissue swelling. IMPRESSION: No acute osseous finding of the bilateral hips or knees. Mildosteoarthrosis of the bilateral knees. 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 CRITICAL RESULT: No. COMMUNICATION: Per this written report. Drafted by Vandana Hernandez MD on 06/20/2025 12:39 PM Final report signed by Vandana Hernandez MD on 06/20/2025 12:43 PM Re Dumont DO IMG XR PROCEDURES Final Result * XR Hips Bilateral 2 Views (06/20/2025 12:37 PM EST) Anatomical Region Laterality Modality Hip, Pelvis Bilateral Digital Radiogra phy Impressions 06/20/2025 12:43 PM EST No acute osseous finding of the bilateral hips or knees. Mild osteoarthrosis of the bilateral knees. 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 CRITICAL RESULT: No. COMMUNICATION: Per this written report. Drafted by Vandana Hernandez MD on 06/20/2025 12:39 PM Final report signed by Vandana Hernandez MD on 06/20/2025 12:43 PM Narrative 06/20/2025 12:43 PM EST CLINICAL INDICATION: bilateral hip and pelvis pain TECHNIQUE: XR HIPS BILATERAL 2 VIEWS, XR KNEE LEFT 1 OR 2 VIEWS, XR KNEE RIGHT 1 OR 2 VIEWS COMPARISON: None. FINDINGS: Bilateral hips: No acute fracture or dislocation. No significant hip joint space loss. Right greater than left pelvic wing enthesopathy. The pubic symphysis and SI joints are intact. Right knee: No acute fracture dislocation. Mild medial and lateral compartment narrowing and chondrocalcinosis. Cortical irregularity of the patella articular surface, concerning for high-grade chondromalacia of the median sagittal range. No suprapatellar effusion. No severe soft tissue swelling. Left knee: No acute fracture or dislocation. Mild medial and lateral compartment narrowing. No suprasellar effusion. No soft tissue swelling. Procedure Note Vandana Hernandez MD - 06/20/2025 CLINICAL INDICATION: bilateral hip and pelvis pain TECHNIQUE: XR HIPS BILATERAL 2 VIEWS, XR KNEE LEFT 1 OR 2 VIEWS, XR KNEE RIGHT 1 OR 2VIEWS COMPARISON: None. FINDINGS: Bilateral hips: No acute fracture or dislocation. No significant hip jointspace loss. Right greater than left pelvic wing enthesopathy. The pubicsymphysis and SI joints are intact. Right knee: No acute fracture dislocation. Mild medial and lateralcompartment narrowing and chondrocalcinosis. Cortical irregularity of thepatella articular surface, concerning for high-grade chondromalacia of themedian sagittal range. No suprapatellar effusion. No severe soft tissueswelling. Left knee: No acute fracture or dislocation. Mild medial and lateralcompartment narrowing. No suprasellar effusion. No soft tissue swelling. IMPRESSION: No acute osseous finding of the bilateral hips or knees. Mildosteoarthrosis of the bilateral knees. 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 CRITICAL RESULT: No. COMMUNICATION: Per this written report. Drafted by Vandana Hernandez MD on 06/20/2025 12:39 PM Final report signed by Vandana Hernandez MD on 06/20/2025 12:43 PM Re Dumont DO IMG XR PROCEDURES Final Result documented in this encounter Visit Diagnoses Diagnosis Bilateral hip pain Pain in joint, pelvic region and thigh Coccyx pain Other disorder of coccyx Chronic midline low back pain without sciatica documented in this encounter Additional Health Concerns Assessment Noted Time PHQ-9 Depression Total Score: 9 06/20/20 10:39 AM EST A fall risk assessment has been complete d for the patient 06/20/2025 10:39 AM EST A Body Mass Index follow-up plan has been documented for the patient 06/20/2025 11:26 AM EST documented as of this encounter Care Teams Diffuser Operator Relationship Specialty Start Date End Date Ayse Hamlin APRN [address] [place] [address] PCP - General 05/30/25 documented as of this encounter
--- NOTE | 2025-07-19 12:58 | MR_ITS ---
FINAL REPORT CLINICAL HISTORY: bilateral hip and back pain. FINDINGS: Multiplanar MR imaging of the pelvis was obtained with and without contrast. The hip joint spaces are well-preserved. The femoral heads demonstrate normal smooth contour. There is no evidence of marrow edema or osteochondral injury. There are small lymph nodes in the inguinal regions bilaterally measuring up to 2.0 cm, favor reactive. The uterus is anteverted and eccentric to the right. No soft tissue inflammation is identified. There is no intrapelvic fluid collection. There is no abnormal contrast-enhancement on the postcontrast images. IMPRESSION: Small lymph nodes in the inguinal regions, favor reactive. Reviewed, Interpreted and Dictated by Osbaldo Kelly MD Transcribed by Faith Liang Authenticated and [facility]
--- NOTE | 2025-07-19 12:59 | MR_ITS ---
FINAL REPORT CLINICAL HISTORY: RODRIGUEZ HIP PAIN FINDINGS: Multiplanar MR imaging of the lumbar spine was performed without and with contrast. On the sagittal T2-weighted images, abnormal decreased signal is seen at L2-3 and L3-4. The vertebral alignment is normal. There is no evidence of fracture. T12-L1: No significant disc bulge or protrusion. L1-2: No significant disc bulge or protrusion. L2-3: Mild diffuse disc bulge with mild bilateral neuroforaminal narrowing. L3-4: Mild to moderate diffuse disc bulge. Mild spinal canal compromise. Mild to moderate bilateral neuroforaminal narrowing. L4-5: Mild to moderate diffuse disc bulge with moderate bilateral neuroforaminal narrowing. L5-S1: No significant disc bulge or protrusion. No abnormal contrast enhancement is identified. IMPRESSION: Diffuse disc bulges from L2-3 to L4-5 with neuroforaminal compromise, most evident at L4-5. Reviewed, Interpreted and Dictated by Osbaldo Kelly MD Transcribed by Faith Liang Authenticated and [facility]
--- OUTSIDE RECORDS SUMMARY | 2025-07-19 13:05 | XMS_ITS | Encounter Summary ---
Author Organization [facility] Address [address] [place] [address] Care Team Providers Care Cold Mill Operator Name Role Phone Ayse Hamlin Dell ELIZABETH Primary Care Provider +1- [phone] Reason for Referral * Consultation (Routine) - Authorized Specialty Diagnoses / Procedures Referred By Edvin [email or web address] Referred To Contact Endocrinology Diagnoses Hyperthyroidism Re Dumont DO [address] [facility] [address] [place] [address] Phone: tel: fax: Referral ID Status Reason Start Date Expiration Date Visits Requested Visits Authorized [id number] Authorized Specialty Services Required 06/20/2025 12/20/2026 1 1 Encounter Details Date Type Department Care Team (Late st Contact Info) Description 06/20/2025 Orders Only [facility] [address] [place] [address] Re Dumont DO [address] [facility] [address] [place] [address] Hyperthyroidism (Primary Dx) Social History Tobacco Use Types Packs/Day Years [...] Notes - Re Dumont DO - 06/20/2025 2:05 PM EST Called pt about low TSH, recommend endocrinology evaluation, she is agreeable. I have placed referral. documented in this encounter Plan of Treatment Upcoming Encounters Date Type Department Care Team (Late st Contact Info) Description 09/26/2025 8:45 AM EST Office Visit [facility] [address] [place] [address] Re Dumont DO [address] [place] [address] Scheduled Referrals Name Type Priority Associated Diagnoses Orde r Schedule Endocrinology Outpatient Referral Routine Hyperthyroidism Expected: 06/20/2025 (Approximate), Expires: 12/22/2026 documented as of this encounter Visit Diagnoses Diagnosis Hyperthyroidism- Primary Thyrotoxicosis without mention of goiter or other cause, without mention of thyrotoxic crisis or storm documented in this encounter Additional Health Concerns Assessment Noted Time PHQ-9 Depression Total Score: 9 06/20/20 10:39 AM EST A fall risk assessment has been complete d for the patient 06/20/2025 10:39 AM EST A Body Mass Index follow-up plan has been documented for the patient 06/20/2025 11:26 AM EST documented as of this encounter Care Teams Cold Mill Operator Relationship Specialty Start Date End Date Ayse Hamlin APRN [address] [place] [address] PCP - General 05/30/25 documented as of this encounter
--- OUTSIDE RECORDS SUMMARY | 2025-07-19 13:05 | XMS_ITS | Encounter Summary ---
Author Organization Healthcare Address [address] [place] [address] Care Team Providers Care Cable Machine Operator Name Role Phone Ayse Hamlin GLENN Primary Care Provider +1- [phone] Encounter Details Date Type Department Care Team (Late st Contact Info) Description 06/21/2025 Results Follow-Up [facility] Medicine Specialties [address] [place] [phone] Kay Browning RN [facility] None Social History Tobacco Use Types Packs/Day Years [...] on file documented as of this encounter Miscellaneous Notes * Telephone Encounter - Kay Browning RN - 06/21/2025 10:14 AM EST Mailed letter to address on file with endocrinology referral. Updated referral to be outgoing. * Telephone Encounter - Kay Browning RN - 06/21/2025 10:13 AM EST ----- Message from Re Dumont DO sent at 06/20/2025 2:07 PM EST ----- Regarding: Send pt referral for endocrinology Todd Kay, I placed a referral for endocrinology for pt due to low TSH, I called her to let her know as well, she wants it outgoing if we could send to her. Thanks ----- Message ----- From: Lab, Background User Sent: 06/20/2025 1:36 PM EST To: Re Dumont DO documented in this encounter Plan of Treatment Upcoming Encounters Date Type Department Care Team (Late st Contact Info) Description 09/26/2025 8:45 AM EST Office Visit [facility] [address] [place] [address] Re Dumont DO [address] [place] [address] documented as of this encounter Visit Diagnoses Not on filedocumented in this encounter Additional Health Concerns Assessment Noted Time PHQ-9 Depression Total Score: 9 06/20/20 10:39 AM EST A fall risk assessment has been complete d for the patient 06/20/2025 10:39 AM EST A Body Mass Index follow-up plan has been documented for the patient 06/20/2025 11:26 AM EST documented as of this encounter Care Teams Cable Machine Operator Relationship Specialty Start Date End Date Ayse Hamlin APRN [address] [place] [address] PCP - General 05/30/25 documented as of this encounter
--- OUTSIDE RECORDS SUMMARY | 2025-07-19 13:05 | XMS_ITS ---
Author Organization [facility] Address [address] [place] [address] Care Team Providers Care Truck Sales Representative Name Role Phone Ayse Hamlin APRN Primary Care Provider [phone]- [phone] Hepatitis C Program Status:Closed (Closed) Start date:06/20/2025 Enrollment reason:HCV End date:06/20/2025 Close reason:HCV RNA Negative Continued Care and Services Coordination
--- OUTSIDE RECORDS SUMMARY | 2025-07-19 13:05 | XMS_ITS | Clinical Summary ---
Author Organization Healthcare Address [address] [place] [address] Care Team Providers Care Furnace Hand Name Role Phone HamlinRuth harriscatalina Sharpe APRN Primary Care Provider [phone] Allergies Active Allergy Reactions Criticality Noted Date Comments Penicillins Swelling,Unknown - P atient states they do not know rxn details High 01/25/2015 Sulfamethazine Other - please docum ent in the comment field Low 06/24/2022 Sulfamethoxazole Rash Low 06/24/2022 Tetracycline Hives Medium 06/24/2022 Trimethoprim Rash Low 06/24/2022 Medications Ventolin HFA 108 (90 Base) MCG/ACT inhaler INHALE 2 PUFFS BY MOUTH EVERY 4 TO 6 HOURS NEEDED FOR SHORTNESS OF BREATH FOR WHEEZING 5 Active busPIRone (Buspar) 10 MG tablet Take 1 tablet by mouth 3 times a day. 5 Active CombiPatch 0.05-0.14 MG/DAY APPLY 1 PATCH TOPICALLY TWICE A WEEK APPLY 1 PATCH EVERY 3 DAYS ALTERNATING WITH 1 PATCH EVERY 4 DAYS 5 Active famotidine (Pepcid) 40 MG tablet TAKE 1 TABLET BY MOUTH AT BEDTIME NIGHTLY 5 Active hydrOXYzine pamoate (Vistaril) 25 MG capsule take 1 capsule by mouth three times daily as needed for anxiety Active lidocaine (Lidoderm) 5 % patch APPLY ONE PATCH TOPICALLY TO CLEAN, DRY SKIN. LEAVE ON FOR 12 HOURS THEN REMOVE. MUST WAIT AT LEAST 12 HOURS BEFORE APPLYING PATCH(ES) AGAIN. 5 Active losartan-hydroC HLOROthiazide (Hyzaar) 50-12.5 MG tablet Take 1 tablet by mouth daily. Active meloxicam (Mobic) 15 MG tablet Active metoprolol succinate XL (Toprol-XL) 25 MG 24 hr tablet Active omeprazole (PriLOSEC) [address] capsule Take 1 capsule by mouth daily. Active sertraline (Zoloft) 50 MG tablet Active traZODone (Desyrel) 50 MG tablet Take 1 tablet by mouth daily. Active Encounters Date Type Department Care Team Description 07/07/2025 Telephone [facility] Medicine Specialties [address] [place] [address] Re Dumont DO 06/21/2025 Results Follow-Up [facility] Medicine Specialties [address] [place] [address] Kay Browning RN 06/20/2025 11:53 AM EST - 06/20/2025 11:59 PM EST Hospital Encounter [facility] Radiology [address], [address] [place] [address] Bilateral hip pain; Coccyx pain; Chronic midline low back pain without sciatica Discharge Disposition: Home or Self Care 06/20/2025 10:15 AM EST Consult [facility] Medicine Specialties [address] [place] [address] Re Dumont DO Polyarthralgia (Primary Dx); Bilateral hip pain; Coccyx pain; Chronic midline low back pain without sciatica 06/20/2025 Patient Outreach [facility] Medicine Specialties [address] [place] [address] Kari Santos 06/20/2025 Orders Only [facility] Medicine Specialties [address] [place] [address] Re Dumont DO Hyperthyroidism (Primary Dx) 06/20/2025 Travel from Last 3 Months Immunizations Immunization Administration Dates Next Due Hep A, Adult 07/05/2018 TD (adult), 2 Lf tetanus tox oid, preservative free, adsorbed 08/17/2011,11/21/2002 Tdap 09/19/2017,01/08/2015,03/08/2013 Family History Medical History Relation Name Comments [...] Mass Index 27.79 06/20/2025 10:30 AM EST Plan of Treatment Upcoming Encounters Date Type Department Care Team (Late st Contact Info) Description 09/26/2025 8:45 AM EST Office Visit [place] [facility] Medicine Specialties [address] [place] [address] Re Dumont, [address] [place] [address] Health Maintenance Due Date Last Done Comments [facility]-HIV Screening 1974 [facility]-/Child/Adol SDOH Screenings 1974 [facility]- SDOH Screenings 1992 [facility]-Adult SDOH Screenings 1992 [facility]-Hepatitis B Vaccines (1 of 3 - 19+ 3-dose series) 1993 [facility]-Pneumococcal Vaccine: 50+ Years (1 of 2 - PCV) 1993 [facility]-Pap Smear 1995 [facility]-Cervical Cancer Screening 2004 [facility]-HPV/Cotest 2004 CT Colonography 2019 Colonoscopy 2019 FIT-DNA 2019 FIT 2019 FOBT 2019 Sigmoidoscopy 2019 [facility]-Colorectal Cancer Screening 2019 Lung Cancer Screening Shared Decision Making 2024 [facility]-Breast Cancer Screening 2024 [facility]-Lung Cancer Screening 2024 [facility]-Zoster Vaccines (1 of 2) 2024 [id number] Vaccine (1 - season) 2025 [facility]-Influenza Vaccine (#1) 2025 [facility]-Depression Screening 06/20/2026 06/20/2025, 11/2024 [facility]-DTaP,Tdap,and Td Vaccines (4 - Td or Tdap) 09/19/2027 09/19/2017, 01/08/2015, 03/08/2013, Additional history exists [facility]-Hepatitis A Vaccines Aged Out 07/05/2018 No longer eligible based on patient's age to complete this topic [facility]-Hepatitis C Screening Completed 06/20/2025 [facility]-Obesity Intervention Completed 06/20/2025 HPV Vaccines Aged Out No longer eligi ble based on patient's age to complete this topic [facility]-HIB Vaccines Aged Out No longer e ligible based on patient's age to complete this topic [facility]-IPV Vaccines Aged Out No longer e ligible based on patient's age to complete this topic [facility]-Rotavirus Vaccines Aged Out No lo nger eligible based on patient's age to complete this topic Procedures Procedure Name Priority Date/Time Associated Diagnosis Comments XR KNEE RIGHT 1 OR 2 VIEWS Routine 06/20/2025 12:37 PM EST Bilateral hip pain Coccyx pain Chronic midline low back pain without sciatica XR KNEE LEFT 1 OR 2 VIEWS Routine 06/20/2025 12:37 PM EST Bilateral hip pain Coccyx pain Chronic midline low back pain without sciatica XR HIPS BILATERAL 2 VIEWS Routine 06/20/2025 12:37 PM EST Bilateral hip pain Coccyx pain Chronic midline low back pain without sciatica PROTEIN, URINE, RANDOM WITH CREATININE Routine 06/20/2025 11:46 AM EST Polyarthralgia URINALYSIS WITH REFLEX MICROSCOPIC Routine 06/20/2025 11:46 AM EST Polyarthralgia PROTEIN ELECTROPHORESIS, PATHOLOGIST INTERPRETATION Routine 06/20/2025 11:44 AM EST Polyarthralgia THYROGLOBULIN (INHOUSE- REFLEX ONLY) Routine 06/20/2025 11:44 AM EST Polyarthralgia HEPATITIS C VIRUS QUANTITATIVE PCR FROM REFLEX Routine 06/20/2025 11:44 AM EST Polyarthralgia DNA ISOLATION AND HOLD (HLA) Routine 06/20/2025 11:44 AM EST Bilateral hip pain Coccyx pain Chronic midline low back pain without sciatica FREE T4, PLASMA Routine 06/20/2025 11:44 AM EST Polyarthralgia TOTAL PROTEIN, SERUM Routine 06/20/2025 11:44 AM EST Polyarthralgia PROTEIN ELECTROPHORESIS, SERUM Routine 06/20/2025 11:44 AM EST Polyarthralgia CBC WITH AUTO DIFFERENTIAL Routine 06/20/2025 11:44 AM EST Polyarthralgia COMPREHENSIVE METABOLIC PANEL, PLASMA STAT 06/20/2025 11:44 AM EST Polyarthralgia C-REACTIVE PROTEIN, PLASMA Routine 06/20/2025 11:44 AM EST Polyarthralgia SEDIMENTATION RATE, AUTOMATED Routine 06/20/2025 11:44 AM EST Polyarthralgia ANTINUCLEAR ANTIBODY (GOGO) WITH HEP-2 SUBSTRATE, IGG BY IFA (SO) Routine 06/20/2025 11:44 AM EST Polyarthralgia DOUBLE-STRANDED DNA (DSDNA) ANTIBODY, IGG BY IFA (SO) Routine 06/20/2025 11:44 AM EST Polyarthralgia CHAVEZ (OCTAVIA) ANTIBODY, IGG (SO) Routine 06/20/2025 11:44 AM EST Polyarthralgia C3 COMPLEMENT Routine 06/20/2025 11:44 AM EST Polyarthralgia C4 COMPLEMENT Routine 06/20/2025 11:44 AM EST Polyarthralgia SSA 52 AND 60 (RO) (OCTAVIA) ANTIBODIES, IGG (SO) Routine 06/20/2025 11:44 AM EST Polyarthralgia SSB (LA) (OCTAVIA) ANTIBODY, IGG (SO) Routine 06/20/2025 11:44 AM EST Polyarthralgia CHAVEZ/GOLF CART MECHANIC (OCTAVIA) ANTIBODY, IGG (SO) Routine 06/20/2025 11:44 AM EST Polyarthralgia TSH REFLEX FT4 Routine 06/20/2025 11:44 AM EST Polyarthralgia THYROGLOBULIN ANTIBODY AND THYROGLOBULIN (STORM OR LC-MSMS) Routine 06/20/2025 11:44 AM EST Polyarthralgia THYROID PEROXIDASE ANTIBODY Routine 06/20/2025 11:44 AM EST Polyarthralgia VITAMIN D 25 HYDROXY Routine 06/20/2025 11:44 AM EST Polyarthralgia CYCLIC CITRUL PEPTIDE ANTIBODY IGG Routine 06/20/2025 11:44 AM EST Polyarthralgia RHEUMATOID FACTOR, PLASMA Routine 06/20/2025 11:44 AM EST Polyarthralgia PROTEIN ELECTROPHORESIS, SERUM Routine 06/20/2025 11:44 AM EST Polyarthralgia QUANTIFERON TB GOLD PLUS Routine 06/20/2025 11:44 AM EST Polyarthralgia ACUTE HEPATITIS PANEL Routine 06/20/2025 11:44 AM EST Polyarthralgia HLA B27 TYPING Routine 06/20/2025 11:44 AM EST Bilateral hip pain Coccyx pain Chronic midline low back pain without sciatica from Last 3 Months Results * XR Hips Bilateral 2 Views (06/20/2025 [...] XR PROCEDURES Final Result * XR Knee Right 1 or 2 [...] DO IMG XR PROCEDURES Final Result * Protein, Random, Urine with Creatinine (06/20/2025 11:46 AM EST) Protein, Urine 16 mg/dL 06/20/2025 1:52 PM EST [facility] Creatinine, Urine 207 mg/dL 06/20/2025 1:52 PM EST [facility] Protein/Creatin ine Ratio 0.1 mg/mg Creat 06/20/2025 1:52 PM EST [facility] Urine Urine specimen obtained by clean catch procedure / Unknown Non-blood Collection / Unknown 06/20/2025 11:46 AM EST 06/20/2025 11:46 AM EST Re Dumont DO LAB URINE ORDERABLES Final Resu lt [facility] [address] [place] [address] * (ABNORMAL) Urinalysis with reflex microscopic (Culture NOT Included) (06/20/2025 11:46 AM EST) Color, Urine Dark Yellow LAB URINALYSIS - AUTOMATED METHOD 06/20/2025 1:36 PM EST [facility] Clarity, Urine Clear LAB URINALYSIS - AUTOMATED METHOD 06/20/2025 1:36 PM EST [facility] Spec Preble, Urine 1.023 1.005 - 1.030 LAB URINALYSIS - AUTOMATED METHOD 06/20/2025 1:36 PM EST [facility] pH, Urine 5.5 5.0 - 8.0 LAB URINALYSIS - AUTOMATED METHOD 06/20/2025 1:36 PM EST [facility] Protein, Urine Negative Negative mg/dL LAB URINALYSIS - AUTOMATED METHOD 06/20/2025 1:36 PM EST [facility] Glucose, Urine Negative Negative mg/dL LAB URINALYSIS - AUTOMATED METHOD 06/20/2025 1:36 PM EST [facility] Ketones, Urine Trace(A) Negative mg/dL LAB URINALYSIS - AUTOMATED METHOD 06/20/2025 1:36 PM EST [facility] Blood, Urine Negative Negative LAB URINALYSIS - AUTOMATED METHOD 06/20/2025 1:36 PM EST [facility] Bilirubin, Urine Negative Negative LAB URINALYSIS - AUTOMATED METHOD 06/20/2025 1:36 PM EST [facility] Urobilinogen, Urine 0.2 0.2 to 1.0 mg/dL LAB URINALYSIS - AUTOMATED METHOD 06/20/2025 1:36 PM [facility] Leukocytes, Urine Negative Negative LAB URINALYSIS - AUTOMATED METHOD 06/20/2025 1:36 PM [facility] Nitrite, Urine Negative Negative LAB URINALYSIS - AUTOMATED METHOD 06/20/2025 1:36 PM EST [facility] Urine Urine specimen obtained by clean catch procedure / Unknown Non-blood Collection / Unknown 06/20/2025 11:46 AM EST 06/20/2025 11:46 AM EST us Re Dumont DO LAB URINE ORDERABLES Final Resu lt [facility] [address] [place] [address] * Hepatitis C Virus (HCV) Quantitative PCR (06/20/2025 11:44 AM EST) Hepatitis C Virus (HCV) Quantitative Interpretation Not Detected Not Detected. 06/21/2025 6:30 PM EST [facility] Blood Venous blood specimen / Unknown Venipuncture / Unknown 06/20/2025 11:44 AM EST 06/20/2025 11:47 AM EST Narrative [facility] - 06/21/2025 6:30 PM EST The Rebtel M2000 HCV test is a Real Time in vitro nucleic acid amplification test for the quantitation of Hepatitis C Viral (HCV) RNA in human serum in HCV-infected individuals. It is intended for use as an aid in the management of HCV-infected individuals undergoing anti-viral therapy. The dynamic range for this test is log10 = 1.08 to 8.00 and/or 12 to 100,000,000 IU/mL. The limit of detection (LOD) for this assay is 12 IU/mL and the limit of quantitation (LOQ) is 12 IU/mL. This assay is FDA approved for clinical use. [facility] LAB BLOOD ORDERABLES Final Resu lt Performing Organization Address City/[facility]/ZIP Co de Phone Number [facility] [address] [place] [address] * Thyroglobulin Reflex to MS or IA (06/20/2025 11:44 AM EST) Thyroglobulin Antibody <1.0 <4.0 IU/mL 06/20/2025 4:31 PM EST [facility] Blood Venous blood specimen / Unknown Venipuncture / Unknown 06/20/2025 11:44 AM EST 06/20/2025 11:47 AM EST [facility] BLOOD ORDERABLES Final Resu lt [facility] [address] [place] [address] * DNA Isolation and Hold (HLA) (06/20/2025 11:44 AM EST) Blood Venous blood specimen / Unknown Venipuncture / Unknown 06/20/2025 11:44 AM EST 06/20/2025 11:47 AM EST [facility] MOLECULAR DIAGNOSTICS ORDER ALFREDO Final Result Performing Organization Address [facility]/ZIP Co de Phone Number [facility] [address] * (ABNORMAL) TSH Reflex FT4 (06/20/2025 11:44 AM EST) Thyroid Stimulating Hormone, Plasma 0.35(L) 0.40 - 4.20 uIU/mL 06/20/2025 1:43 PM EST [facility] Blood Venous blood specimen / Unknown Venipuncture / Unknown 06/20/2025 11:44 AM EST 06/20/2025 11:47 AM EST Narrative [facility] - 06/20/2025 1:43 PM EST Trimester Specific Ranges TSH ( IU/mL) 1st Trimester 0.1 - 3.0 2nd Trimester 0.19 - 4.06 3rd Trimester 0.3 - 3.7 ReDctio DO LAB BLOOD ORDERABLES Final Resu lt Performing Organization Address City/[facility]/ZIP Co de Phone Number [facility] [address] [place] [address] * Total Protein, Serum (06/20/2025 11:44 AM EST) Pathologist [facility] Total Protein 6.8 6.2 - 7.7 g/dL 06/20/2025 1:36 PM EST [facility] Blood Venous blood specimen / Unknown Venipuncture / Unknown 06/20/2025 11:44 AM EST 06/20/2025 11:47 AM EST [employer] LAB BLOOD ORDERABLES Final Resu lt Performing Organization Address City/[facility]/ZIP Co de Phone Number [facility] [address] [place] [address] * Protein Electrophoresis, Serum (06/20/2025 11:44 AM EST) Albumin Electrophoresis, Serum 3.8 3.6 - 4.7 g/dL 06/21/2025 12:31 AM EST [facility] Alpha 1 Globulin Electrophoresis, Serum 0.3 0.2 - 0.4 g/dL 06/21/2025 12:31 AM EST [facility] Alpha 2 Globulin Electrophoresis, Serum 0.8 0.5 - 0.9 g/dL 06/21/2025 12:31 AM EST [facility] Beta 1 Globulin Electrophoresis, Serum 0.4 0.3 - 0.5 g/dL 06/21/2025 12:31 AM EST [facility] Beta 2 Globulin Electrophoresis, Serum 0.3 0.2 - 0.5 g/dL 06/21/2025 12:31 AM EST [facility] Gamma Globulin Electrophoresis, Serum 1.1 0.6 - 1.5 g/dL 06/21/2025 12:31 AM EST [facility] Interpretation, Serum Protein Electrophoresis Pathology report to follow. 06/21/2025 12:31 AM EST [facility] Blood Venous blood specimen / Unknown Venipuncture / Unknown 06/20/2025 11:44 AM EST 06/20/2025 11:47 AM EST Re Dumont DO LAB BLOOD ORDERABLES Final Resu lt [facility] [address] [place] [address] * Chavez (OCTAVIA) Antibody, IgG (06/20/2025 11:44 AM EST) Chavez (OCTAVIA) Antibody, IgG 3 0 - 40 AU/mL 06/22/2025 12:00 AM EST [facility] Serum 06/20/2025 11:4 4 AM EST 06/20/2025 11:47 AM EST Narrative [facility]) - 06/22/2025 12:00 AM EST INTERPRETIVE INFORMATION: [...] associations with SLE clinical manifestations. Performed By: [facility] [address] [place] [address] Mechanical Systems Designer: Augustine Carlin MD, PhD CLIA Number: [id number] us Re Dumont DO LAB REF LAB BLOOD AND FLUID ORD Final Result [facility] [address] [place] [address] * SSA 52 and 60 (Ro) (OCTAVIA) Antibodies, IgG (06/20/2025 11:44 AM EST) SSA-52 (RO52) (OCTAVIA) Antibody, IgG 1 0 - 40 AU/mL 06/22/2025 12:00 AM EST [facility]) SSA-60 (RO60) (OCTAVIA) Antibody, IgG 1 0 - 40 AU/mL 06/22/2025 12:00 AM EST [facility]) Serum 06/20/2025 11:4 4 AM EST 06/20/2025 11:47 AM EST Narrative [facility]) - 06/22/2025 12:00 AM EST INTERPRETIVE INFORMATION: [...] AU/mL or Greater .......... Positive Performed By: [facility] [address] [place] [address] Mechanical Systems Designer: Augustine Carlin MD, PhD CLIA Number: [id number] [facility] LAB REF LAB BLOOD AND FLUID ORD Final Result Performing Organization Address [facility]/ZIP Co de Phone Number [facility]) [address] [place] [address] * Protein electrophoresis serum, pathologist interpretation (06/20/2025 11:44 AM EST) Clinical Diagnosis, SPEP Evaluation of positive rheumatoid factor 06/22/2025 9:18 AM EST [facility] Interpretation , SPEP The total protein and serum protein electrophoretic fractions are within normal limits. A resident was involved in the service. I attest I examined the relevant preparations for the specimens and confirmed the diagnosis or interpretation. 06/22/2025 9:18 AM EST [facility] Pathologist Signature, SPEP Reviewed by: Maco Grey MD 06/22/2025 9:18 AM EST [facility] LAB CP ASR DISCLAIMER Yes 06/22/2025 9:18 AM EST [facility] Blood Venous blood specimen / Unknown Venipuncture / Unknown 06/20/2025 11:44 AM EST 06/20/2025 11:47 AM EST [facility] LAB PATHOLOGY ORDERABLES Final Result [facility] [address] [place] [address] * Thyroglobulin (06/20/2025 11:44 AM EST) Thyroglobulin (Inhouse) 25.3 <=31.8 ng/mL 06/20/2025 5:13 PM EST [facility] Blood Venous blood specimen / Unknown Venipuncture / Unknown 06/20/2025 11:44 AM EST 06/20/2025 11:47 AM EST Narrative [facility] - 06/20/2025 5:13 PM EST Performed by [employer] 2nd generation TG chemiluminescent immunoassay. Results obtained with different test methods or kits cannot be used interchangeably. Reyung Dumont LAB BLOOD ORDERABLES Final Resu lt [facility] [address] [place] [address] * ENAI (06/20/2025 11:44 AM EST) Chavez/GOLF CART MECHANIC (OCTAVIA) Ab, IgG 1 0 - 19 Units 06/22/2025 4:41 AM EST [facility]) Blood Venous blood specimen / Unknown Venipuncture / Unknown 06/20/2025 11:44 AM EST 06/20/2025 11:47 AM EST Narrative [facility]) - 06/22/2025 4:41 AM EST INTERPRETIVE INFORMATION: Chavez/GOLF CART MECHANIC (OCTAVIA) Antibody, IgG 19 Units or Less ............. Negative 20 to 39 Units ............... Weak Positive 40 to 80 Units ............... Moderate Positive 81 Units or greater .......... Strong Positive Chavez/GOLF CART MECHANIC antibodies are frequently seen in patients with mixed connective tissue disease (MCTD) and are also associated with other systemic autoimmune rheumatic diseases (SARDs) such as systemic lupus erythematosus (SLE), systemic sclerosis, and myositis. Antibodies targeting the Chavez/GOLF CART MECHANIC antigenic complex also recognize Chavez antigens, therefore, the Chavez antibody response must be considered when interpreting these results. Performed By: [facility] [address] [place] [address] Mechanical Systems Designer: Augustine Carlin MD, PhD CLIA Number: [id number] Reyung Dumont LAB BLOOD ORDERABLES Final Resu lt [facility] [employer]) [address] [place] [address] * SSB (La) (OCTAVIA) Antibody, IgG (06/20/2025 11:44 AM EST) SSB (LA) (OCTAVIA) Antibody, IgG 1 0 - 40 AU/mL 06/22/2025 12:00 AM EST [facility] ([facility]) Serum Venous blood specimen / Unknown 06/20/2025 11:44 AM EST 06/20/2025 11:47 AM EST Narrative [facility]) - 06/22/2025 12:00 AM EST INTERPRETIVE INFORMATION: SSB (La) (OCTAVIA) Ab, IgG 29 AU/mL or Less ............. Negative 30 - 40 AU/mL ................ Equivocal 41 AU/mL or Greater .......... Positive SSB (La) antibody is seen in 50-60% of Sjogren syndrome cases and is specific if it is the only OCATVIA antibody present. 15-25% of patients with systemic lupus erythematosus (SLE) and 5-10% of patients with progressive systemic sclerosis (PSS) also have this antibody. Performed By: [facility] [address] [place] [address] Mechanical Systems Designer: Augustine Carlin MD, PhD CLIA Number: [id number] Re Dumont DO LAB BLOOD ORDERABLES Final Resu lt [facility] [employer] (LATASHA) [address] [place] [address] * HLA B27 Typing (06/20/2025 11:44 AM EST) Blood Venous blood specimen / Unknown Venipuncture / Unknown 06/20/2025 11:44 AM EST 06/20/2025 11:47 AM EST Re Dumont DO LAB BLOOD ORDERABLES Final Resu lt [facility] [address] [place] [address], * Thyroid Peroxidase Antibody (06/20/2025 11:44 AM EST) Thyroid Peroxidase Antibody <5 <=8 IU/mL 06/20/2025 2:25 PM EST [facility] Blood Venous blood specimen / Unknown Venipuncture / Unknown 06/20/2025 11:44 AM EST 06/20/2025 11:47 AM EST [facility] LAB BLOOD ORDERABLES Final Resu lt Performing Organization Address [facility] Co de Phone Number [facility] [address] [place] [address] * Cyclic Citrul Peptide Antibody IgG (06/20/2025 11:44 AM EST) Cyclic Citrul Peptide Antibody IgG <5.0 <=5.0 U/mL 06/20/2025 2:05 PM EST [facility] Blood Venous blood specimen / Unknown Venipuncture / Unknown 06/20/2025 11:44 AM EST 06/20/2025 11:47 AM EST [facility] LAB BLOOD ORDERABLES Final Resu lt Performing Organization Address City/[facility] [place] [address] * Double-Stranded DNA (dsDNA) Antibody, IgG by IFA (06/20/2025 11:44 AM EST) Pathologist [facility] Double-Strande d DNA (dsDNA) Ab IgG IFA <1:10 <1:10 06/23/2025 10:07 AM EST [facility] ([facility]) Blood Venous blood specimen / Unknown Venipuncture / Unknown 06/20/2025 11:44 AM EST 06/20/2025 11:47 AM EST Narrative [facility] ([facility]) - 06/23/2025 10:07 AM EST INTERPRETIVE INFORMATION: [...] recommendations for testing may be found at [email or web address]. Performed By: [facility] [address] [place] [id number] Mechanical Systems Designer: Augustine Carlin MD, PhD CLIA Number: [id number] [employer] LAB BLOOD ORDERABLES Final Resu lt Performing Organization Address City/[facility]/ZIP Co de Phone Number [facility] (LATASHA) [address] [place] [id number] * (ABNORMAL) Hepatitis panel, acute (06/20/2025 11:44 AM EST) [facility] Hepatitis B Surf Antigen Negative Negative 06/20/2025 3:28 PM EST [facility] Hepatitis C Antibody Positive(A) Negative 06/20/2025 3:28 PM EST [facility] Comment:This specimen is vandana ng sent for confirmation by RT-PCR. Hepatitis A Antibody IgM Negative Negative 06/20/2025 3:28 PM EST [facility] Hepatitis B Core Antibody IgM Indeterminat e(A) Negative 06/20/2025 3:28 PM EST [facility] Comment: Repeat testing on a later sample may be helpful. If repeat testing is indeterminate, no further testing is indicated. Repeat testing on a later sample may be helpful. If repeat testing is indeterminate, no further testing is indicated. Blood Venous blood specimen / Unknown Venipuncture / Unknown 06/20/2025 11:44 AM EST 06/20/2025 11:47 AM EST [facility] LAB BLOOD ORDERABLES Final Resu lt [facility] [address] [place] [address] * Quantiferon TB Gold Plus (06/20/2025 11:44 AM EST) [facility] Quantiferon TB Gold Plus Result Negative Negative 06/21/2025 10:34 AM EST [facility] TB Nill Value 0.0443 IU/mL 06/21/2025 10:34 AM EST [facility] TB Antigen 1 0.0186 IU/mL 06/21/2025 10:34 AM EST [facility] TB Antigen 2 0.0717 IU/mL 06/21/2025 10:34 AM EST [facility] TB Mitogen 9.9557 IU/mL 06/21/2025 10:34 AM EST [facility] Blood Venous blood specimen / Unknown Venipuncture / Unknown 06/20/2025 11:44 AM EST 06/20/2025 11:47 AM EST Narrative [facility] - 06/21/2025 10:34 AM EST Responses to the Mitogen positive control and occasionally to TB antigen can be above the assay range. For calculation purposes: IFN-gamma values > 10 IU/mL are handled as 10 IU/mL. Re Dumont DO LAB BLOOD ORDERABLES Final Resu lt [facility] [address] [place] [address] * Vitamin D 25 Hydroxy (06/20/2025 11:44 AM EST) Pathologist [facility] Vitamin D 25 Hydroxy 24.7 20.0 - 80.0 ng/mL 06/20/2025 3:17 PM EST [facility] Blood Venous blood specimen / Unknown Venipuncture / Unknown 06/20/2025 11:44 AM EST 06/20/2025 11:47 AM EST Narrative [facility] - 06/20/2025 3:17 PM EST Testing performed on [place] [employer], standardized against NIST SRM 2972. When testing [...] to 80 ng/mL Possible toxicity: >100 ng/mL [facility] LAB BLOOD ORDERABLES Final Resu lt Performing Organization Address City/[facility]/ZIP Co de Phone Number [facility] [address] [place] [address] * Sedimentation Rate, Automated (06/20/2025 11:44 AM EST) Sedimentation Rate 18 <30 mm/hr 2024 2:44 PM EST [facility] Blood Venous blood specimen / Unknown Venipuncture / Unknown 06/20/2025 11:44 AM EST 06/20/2025 11:47 AM EST [employer] DO LAB BLOOD ORDERABLES Final Resu lt Performing Organization Address City/[facility] Co de Phone Number [facility] [address] [place] [address] * (ABNORMAL) CBC and Differential (06/20/2025 11:44 AM EST) WBC Count 14.04(H) 3.70 - 10.30 10*3/uL LAB HEMATOLOGY METHOD 06/20/2025 2:15 PM EST [facility] RBC Count 5.11 3.90 - 5.20 10*6/uL LAB HEMATOLOGY METHOD 06/20/2025 2:15 PM EST [facility] HGB 15.1 11.2 - 15.7 g/dL LAB HEMATOLOGY METHOD 06/20/2025 2:15 PM EST [facility] HCT 45.9(H) 34.0 - 45.0 % LAB HEMATOLOGY METHOD 06/20/2025 2:15 PM EST [facility] Platelet Count 283 155 - 369 10*3/uL LAB HEMATOLOGY METHOD 06/20/2025 2:15 PM EST [facility] MCV 90 79 - 98 fL LAB HEMATOLOGY METHOD 06/20/2025 2:15 PM EST [facility] MCH 29.5 26.0 - 32.0 pg LAB HEMATOLOGY METHOD 06/20/2025 2:15 PM EST [facility] MCHC 32.9 30.7 - 35.5 g/dL LAB HEMATOLOGY METHOD 06/20/2025 2:15 PM [facility] RDW 14.5 11.5 - 14.5 % LAB HEMATOLOGY METHOD 06/20/2025 2:15 PM [facility] MPV 10.1 8.8 - 12.5 fL LAB HEMATOLOGY METHOD 06/20/2025 2:15 PM EST [facility] nRBC 0.0 <=0.0 per 100 WBCs LAB HEMATOLOGY METHOD 06/20/2025 2:15 PM [facility] Differential Type Automated LAB HEMATOLOGY METHOD 06/20/2025 2:15 PM [facility] Neutrophils % 69 % LAB HEMATOLOGY METHOD 06/20/2025 2:15 PM EST [facility] Lymphocytes % 21 % LAB HEMATOLOGY METHOD 06/20/2025 2:15 PM [facility] Monocytes % 6 % LAB HEMATOLOGY METHOD 06/20/2025 2:15 PM [facility] Eosinophils % 2 % LAB HEMATOLOGY METHOD 06/20/2025 2:15 PM [facility] Basophils % 1 % LAB HEMATOLOGY METHOD 06/20/2025 2:15 PM [facility] Immature Granulocytes % 1 % LAB HEMATOLOGY METHOD 06/20/2025 2:15 PM [facility] Neutrophils Absolute 9.80(H) 1.60 - 6.10 10*3/uL LAB HEMATOLOGY METHOD 06/20/2025 2:15 PM [facility] Lymphocytes Absolute 2.88 1.20 - 3.90 10*3/uL LAB HEMATOLOGY METHOD 06/20/2025 2:15 PM EST [facility] Monocytes Absolute 0.87 0.30 - 0.90 10*3/uL LAB HEMATOLOGY METHOD 06/20/2025 2:15 PM [facility] Eosinophils Absolute 0.30 0.00 - 0.50 10*3/uL LAB HEMATOLOGY METHOD 06/20/2025 2:15 PM [facility] Basophils Absolute 0.11(H) 0.00 - 0.10 10*3/uL LAB HEMATOLOGY METHOD 06/20/2025 2:15 PM [facility] Immature Granulocytes Absolute 0.08(H) 0.00 - 0.06 10*3/uL LAB HEMATOLOGY METHOD 06/20/2025 2:15 PM EST [facility] Blood Venous blood specimen / Unknown Venipuncture / Unknown 06/20/2025 11:44 AM EST 06/20/2025 11:47 AM EST Narrative [facility] - 06/20/2025 2:15 PM EST Therapeutic decision making should be based on absolute values, rather than percentages. us [employer] DO LAB BLOOD ORDERABLES Final Resu lt Performing Organization Address City/[facility]/ZIP Co de Phone Number [facility] [address] [place] [address] * Rheumatoid Factor, Plasma (06/20/2025 11:44 AM EST) Rheumatoid Factor, Plasma <10 <14 IU/mL 06/20/2025 1:43 PM EST [facility] Blood Venous blood specimen / Unknown Venipuncture / Unknown 06/20/2025 11:44 AM EST 06/20/2025 11:47 AM EST us [facility] LAB BLOOD ORDERABLES Final Resu lt Performing Organization Address City/[facility]/[place] [address] * C3 Complement (06/20/2025 11:44 AM EST) C3 Complement 123 84 - 166 mg/dL 06/20/2025 1:36 PM EST [facility] Blood Venous blood specimen / Unknown Venipuncture / Unknown 06/20/2025 11:44 AM EST 06/20/2025 11:47 AM EST [facility] LAB BLOOD ORDERABLES Final Resu lt Performing Organization Address City/[facility]/ZIP Co de Phone Number [facility] [address] [place] [address] * C4 Complement (06/20/2025 11:44 AM EST) C4 Complement 24 13 - 36 mg/dL 06/20/2025 1:36 PM EST [facility] Blood Venous blood specimen / Unknown Venipuncture / Unknown 06/20/2025 11:44 AM EST 06/20/2025 11:47 AM EST [facility] LAB BLOOD ORDERABLES Final Resu lt Performing Organization Address [facility]/ZIP Co de Phone Number [facility] [address] [place] [address] * C-Reactive Protein, Plasma (06/20/2025 11:44 AM EST) CRP, Plasma 5.4 <=8.0 mg/L 06/20/2025 1:43 PM EST [facility] Blood Venous blood specimen / Unknown Venipuncture / Unknown 06/20/2025 11:44 AM EST 06/20/2025 11:47 AM EST Narrative [facility] - 06/20/2025 1:43 PM EST This CRP test is appropriate for assessment of infection, systemic inflammation and/or tissue injury. To assess cardiovascular disease risk order high sensitivity CRP (CRPH). [facility] LAB BLOOD ORDERABLES Final Resu lt Performing Organization Address [facility] Co de Phone Number [facility] [address] [place] [address] * Antinuclear Antibody (GOGO), HEp-2, IgG (06/20/2025 11:44 AM EST) GOGO INTERPRETIVE COMMENT See Note 06/22/2025 9:24 AM EST [facility] Anti Nuc Ab Screen <1:80 <1:80 06/22/2025 9:24 AM EST [facility] ([facility]) Blood Venous blood specimen / Unknown Venipuncture / Unknown 06/20/2025 11:44 AM EST 06/20/2025 11:47 AM EST Narrative [facility] ([facility]) - 06/22/2025 9:24 AM EST Clinical Interpretation: [...] not necessarily rule out SARD. Performed By: [employer] [address] [place] [address] Mechanical Systems Designer: Augustine Carlin MD, PhD CLIA Number: [id number] [facility] LAB BLOOD ORDERABLES Final Resu lt Performing Organization Address City/[facility]/ZIP Co de Phone Number [facility] ([facility] [address] [place] [id number] * Free T4, Plasma (06/20/2025 11:44 AM EST) Free T4, Plasma 1.2 0.8 - 1.7 ng/dL 06/20/2025 2:09 PM EST [facility] Blood Venous blood specimen / Unknown Venipuncture / Unknown 06/20/2025 11:44 AM EST 06/20/2025 11:47 AM EST Narrative [facility] - 06/20/2025 2:09 PM EST Free T4 Trimester Specific Ranges 1st Trimester 0.9 - 1.50 ng/dL 2nd Trimester 0.7 - 1.40 ng/dL 3rd Trimester 0.7 - 1.24 ng/dL [facility] LAB BLOOD ORDERABLES Final Resu lt [facility] [address] [place] [address] * (ABNORMAL) Comprehensive Metabolic Panel, Plasma (06/20/2025 11:44 AM EST) Glucose, Plasma 114(H) 74 - 99 mg/dL 06/20/2025 1:43 PM EST [facility] BUN, Plasma 13 7 - 21 mg/dL 06/20/2025 1:43 PM EST [facility] Creatinine, Plasma 0.80 0.60 - 1.10 mg/dL 06/20/2025 1:43 PM EST [facility] BUN/Creatinine Ratio 16 06/20/2025 1:43 PM EST [facility] Sodium, Plasma 138 136 - 145 mmol/L 06/20/2025 1:43 PM EST [facility] Potassium, Plasma 3.9 3.6 - 4.9 mmol/L 06/20/2025 1:43 PM EST [facility] Chloride, Plasma 101 97 - 107 mmol/L 06/20/2025 1:43 PM EST [facility] CO2, Plasma 27 22 - 29 mmol/L 06/20/2025 1:43 PM EST [facility] Anion Gap 10 6 - 16 mmol/L 06/20/2025 1:43 PM EST [facility] Total Calcium, Plasma 9.2 8.9 - 10.2 mg/dL 06/20/2025 1:43 PM EST [facility] Total Protein 7.1 6.3 - 7.9 g/dL 06/20/2025 1:43 PM EST [facility] Albumin, Plasma 4.0 3.5 - 5.2 g/dL 06/20/2025 1:43 PM EST [facility] AST, Plasma 15 10 - 35 U/L 06/20/2025 1:43 PM EST [facility] ALT, Plasma 11 10 - 35 U/L 06/20/2025 1:43 PM EST [facility] Alkaline Phosphatase, Plasma 62 35 - 104 U/L 06/20/2025 1:43 PM EST [facility] Total Bilirubin, Plasma 0.4 0.2 - 1.1 mg/dL 06/20/2025 1:43 PM EST [facility] eGFRcr 89.3 mL/min/1.7 3m*2 06/20/2025 1:43 PM EST [facility] Comment:Reported eGFRcr in m L/min/1.73m2 is based the CKD-EPI 2020 equation that does not use a race coefficient. Blood Venous blood specimen / Unknown Venipuncture / Unknown 06/20/2025 11:44 AM EST 06/20/2025 11:47 AM EST us Re Dumont DO LAB BLOOD ORDERABLES Final Resu lt [facility] [address] [place] [address] from Last 3 Months Insurance [employer] Care Teams Furnace Hand Relationship Specialty Start Date End Date Ayse Hamlin APRN [address] [place] [address] PCP - General 05/30/25
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
--- OUTSIDE RECORDS SUMMARY | 2025-07-19 13:05 | XMS_ITS | Encounter Summary ---
Author Organization Healthcare Address [address] [place] [address] Care Team Providers Care Cutter Hand Name Role Phone Ruth Hamlincatalina Sharpe APRN Primary Care Provider [phone]- [phone] Encounter Details Date Type Department Care Team (Late st Contact Info) Description 07/07/2025 Telephone [facility] [address] [place] [address] Re Dumont, DO [address] [place] [address] Social History Tobacco Use Types Packs/Day Years [...] Telephone Encounter - Kay Browning RN - 07/11/2025 11:08 AM EST [facility] at fax [phone]. documented in this encounter Plan of Treatment Upcoming Encounters Date Type Department Care Team (Late st Contact Info) Description 09/26/2025 8:45 AM EST Office Visit [facility] [address] [place] [address] Re Dumont, DO [address] [place] [address] documented as of this encounter Visit Diagnoses [...] documented as of this encounter Care Teams Cutter Hand Relationship Specialty Start Date End Date Ayse Hamlin APRN [address] [place] [address] PCP - General 05/30/25 documented as of this encounter
--- OUTSIDE RECORDS SUMMARY | 2025-07-19 13:05 | XMS_ITS | Encounter Summary ---
Author Organization Healthcare Address [address] [place] [address] Care Team Providers Care Housekeeper Supervisor Name Role Phone Ayse Hamlin APRN Primary Care Provider +1- [phone] Encounter Details Date Type Department Care Team (Latest Contact Info) Description 06/20/2025 Travel Social History Tobacco Use Types Packs/Day Years [...] Assessment Author Somewhat difficult 06/20/2025 10:39 AM EST Desirae Muhammad RN documented as of this encounter Plan of Treatment Upcoming Encounters Date Type Department Care Team (Late st Contact Info) Description 09/26/2025 8:45 AM EST Office Visit [facility] [address] [place] [address] Re Dumont, DO [address] [place] [address] documented as of this encounter [...] documented as of this encounter Care Teams Housekeeper Supervisor Relationship Specialty Start Date End Date Ayse Hamlin APRN [address] [place] [address] PCP - General 05/30/25 documented as of this encounter
--- OUTSIDE RECORDS SUMMARY | 2025-07-19 13:05 | XMS_ITS | Encounter Summary ---
Author Organization Healthcare Address [address] [place] [address] Care Team Providers Care Drawbench Operator Helper Name Role Phone Ayse Hamlin GLENN Primary Care Provider +1- [phone] Encounter Details Date Type Department Care Team (Late st Contact Info) Description 06/20/2025 Patient Outreach [facility] [address] [place] [address] Kari Santos Social History Tobacco Use Types Packs/Day Years [...] of Assessment Author 0 06/20/2025 10:33 AM EST Alejandro Muhammad RN * Question Answer Date of Assessment [...] way Not at all 06/20/2025 10:39 AM EST Brown, Desirae M, RN Patient Health Questionnaire-9 Score 9 06/20/2025 10:39 AM EST Desirae Muhammad, RN * How difficult have these problems [...] Description 09/26/2025 8:45 AM EST [facility] Visit [facility] [address] [place] [address] Re Dumont, DO [address] [place] [address] documented as of this encounter [...] documented as of this encounter Care Teams Drawbench Operator Helper Relationship Specialty Start Date End Date Ayse Hamlin APRN [address] [place] [address] PCP - General 05/30/25 documented as of this encounter
[2025-07-19 13:28] LABS: Blood Urea Nitrogen 12 mg/dl (7-17); Creatinine,Serum 0.70 mg/dl (0.52-1.04); Estimated Glomerular Filt Rate 88 ml/min (>60); GFR (African American) 107 ML/MIN (>60)
[2025-07-19] MEDS: GADOTERIDOL INJ 20ML SYRINGE 16 ML IV (14:21)
[2025-07-19] MEDS: SODIUM CHLORIDE 0.9% 10ML SYR (RAD ONLY) 10 ML IV (14:21)
== END 2025-07-19 23:59 | disposition home or self-care (01) ==
LOC: RAD 12:56
PROVIDERS: PCP Nurse Practitioner Family; Visit Provider Student in an Organized Health Care Education/Training Program
DX: M51.369 Other intervertebral disc degeneration, lumbar region without mention of lumbar back pain or lower extremity pain (principal); M99.73 Connective tissue and disc stenosis of intervertebral foramina of lumbar region; M25.551 Pain in right hip; M25.552 Pain in left hip; M53.3 Sacrococcygeal disorders, not elsewhere classified; R59.0 Localized enlarged lymph nodes
CPT/HCPCS: 36415; 72158; 72197; 82565; 84520; A9576